=== PATIENT | female | born 1980 | race Two or more races ===

== ENCOUNTER 2023-03-05 17:48 | Outpatient (REF) | payer MEDICAID, SELFPAY ==
[2023-03-06 01:18] LABS: CT PCR NOT DETECTED (Not Detect.); NG PCR NOT DETECTED (Not Detect.)
[2023-03-06 14:54] LABS: BV Int Neg Control Negative (Negative); BV Int Pos Control Positive (Positive)
[2023-03-11 21:14] LABS: HPV mRNA E6/E7 rflx Not Detected (Not Detected)
== END 2023-03-05 17:49 | disposition home or self-care (01) ==
LOC: HO.HHCLNP 17:48
PROVIDERS: Visit Provider Family Medicine
DX: Z01.419 Encounter for gynecological examination (general) (routine) without abnormal findings (principal); N89.8 Other specified noninflammatory disorders of vagina
CPT/HCPCS: 0353U; 87480; 87510; 87624; 87660; 88142

== ENCOUNTER 2023-11-14 12:08 | Outpatient (REF) | payer MEDICAID, SELFPAY ==
[2023-11-14 17:16] LABS: Alanine Aminotransferase 13 U/L (0-31); Albumin Level 4.2 g/dL (3.5-5.0); Alkaline Phosphatase 108 U/L (39-117); Anion Gap 13 (12-20); Aspartate Amino Transferase 12 U/L (5-31); Bilirubin Total 0.2 mg/dL (0.0-1.0); Blood Urea Nitrogen 7 mg/dL (9-16); Calcium 9.4 mg/dL (8.4-10.2); Carbon Dioxide 25 mmol/L (22-29); Chloride 107 mmol/L (96-108); Estimated Glomerular Filt Rate > 60; Glucose Random 67 mg/dL (60-115); Lipase 40 U/L (8-78); Potassium 3.6 mmol/L (3.3-5.1); Sodium 141 mmol/L (135-145); Total Protein 8.2 g/dL (6.5-8.0)
== END 2023-11-14 12:09 | disposition home or self-care (01) ==
LOC: HO.HHCL 12:08
PROVIDERS: Visit Provider General Practice
DX: R10.13 Epigastric pain (principal)
CPT/HCPCS: 36415; 80053; 83690

== ENCOUNTER 2023-11-14 13:30 | Outpatient (REF) | payer MEDICAID, SELFPAY ==
--- NOTE | ~2023-11-14 | US_ITS ---
EXAMINATION: US RETROPERITONEAL LIMITED (RENAL ONLY) CLINICAL INFORMATION: Left kidney mass. COMPARISON: CT abdomen and pelvis 11/09/2023: There is a calculus in the upper left kidney measuring 5 mm. There is a subtle focal region of hypoattenuation in the left kidney such as seen on image 33/97, measuring up to approximately 2 cm in the craniocaudal dimension; this could be due to focal pyelonephritis versus a renal mass. TECHNIQUE: Real-time imaging of the kidneys. FINDINGS: RIGHT KIDNEY: 10.1 x 5.0 x 4.9 cm (SAG x AP x TRV). The kidney is normal in size, contour, and echogenicity. Renal cortical thickness is normal. No calculi or focal parenchymal lesions. No hydronephrosis. LEFT KIDNEY: 11.0 x 5.6 x 5.0 cm (SAG x AP x TRV). The kidney is normal in size, contour, and echogenicity. Renal cortical thickness is normal. No calculi or focal parenchymal lesions. The abnormal 2 cm hypoattenuating region in the left kidney seen at the time of the CT scan on 11/09/2023 is not seen on this study. The left-sided renal calculus seen on that exam is also not seen on this study. No hydronephrosis. US/US renal BI IMPRESSION: Normal-appearing kidneys. The abnormality seen on the CT scan is not seen on this study. The abnormality on the CT scan, however, was quite real and not questionable/equivocal. If the patient had symptoms of pyelonephritis and was treated with antibiotics and is now better, this possibly could have represented focal bacterial nephritis. However, MRI is recommended for further evaluation to exclude malignancy. This would be best in probably one month's time to assess for interval change.
== END 2023-11-14 13:31 | disposition home or self-care (01) ==
LOC: HO.US 13:30
PROVIDERS: PCP Family Medicine; Visit Provider General Practice
DX: N28.89 Other specified disorders of kidney and ureter (principal)
CPT/HCPCS: 36415; 76775; 80053; 83690

== ENCOUNTER 2023-11-17 16:40 | Emergency (ER) | payer MEDICAID, SELFPAY ==
--- NOTE | ~2023-11-17 | US_ITS ---
EXAMINATION: US ABDOMEN LIMITED CLINICAL INFORMATION: Right upper quadrant pain. Abnormal liver function tests.. COMPARISON: None available. TECHNIQUE: Real-time imaging of the right upper quadrant abdominal viscera. FINDINGS: PANCREAS: Normal. LIVER: Normal. The liver is normal in size. The liver contour is normal. Parenchymal echogenicity is normal. No focal hepatic lesion. There is no intrahepatic biliary duct dilatation seen. GALLBLADDER: The gallbladder appears to be partially contracted. A few shadowing gallbladder calculi are seen. The gallbladder wall measures up to 4.5 mm. There is no pericholecystic fluid. The patient did not report pain when scanning the right upper quadrant. COMMON BILE DUCT: Normal in caliber measuring 0.3 cm in diameter. RIGHT KIDNEY: Normal. No hydronephrosis. No renal calculi or focal parenchymal lesions. The kidney measures 10.2 cm in maximum dimension. FREE FLUID: None. US/US abdomen limited IMPRESSION: Cholelithiasis with mild nonspecific gallbladder wall thickening. No pericholecystic fluid or sonographic Saenz's sign to suggest acute cholecystitis.
--- NOTE | ~2023-11-17 | CT_ITS ---
EXAMINATION: CT ABDOMEN AND PELVIS WITH CONTRAST CLINICAL INFORMATION: Abdominal pain COMPARISON: CT abdomen from 11/09/2023 TECHNIQUE: Multidetector volumetric images were obtained from the superior aspect of the liver through the pubic symphysis following administration 85 mL of Omnipaque 350 intravenous contrast. Sagittal and coronal reformatted images were obtained on the technologist's workstation. Oral contrast: No This CT examination was performed using dose optimization techniques as appropriate, variously including the following: *Automated exposure control *Adjustment of mA and/or kV according to patient size (this includes techniques or standardized protocols for targeted exams where dose is matched to indication/reason for exam; i.e. extremities or head) *Use of iterative reconstruction technique DLP: 718 mGy-cm FINDINGS: LUNG BASES: Bibasilar atelectasis. No pneumothorax. No large pleural effusion. LIVER, GALLBLADDER, AND BILIARY TREE: The liver is normal in size, shape, and attenuation. No focal hepatic lesion or biliary ductal dilatation is present. The gallbladder is not fully distended though there is suggestion of mild wall thickening with trace pericholecystic fluid. Findings may reflect cholecystitis. Correlation with symptomatology. PANCREAS: Unremarkable. SPLEEN: Unremarkable. ADRENAL GLANDS: Unremarkable. KIDNEYS AND URETERS: Bilateral nephrolithiasis the largest in the left renal interpolar region measuring 5 mm without hydronephrosis. Hypodense focus in the left renal interpolar region better visualized on prior imaging nonspecific measuring up to 1.0 cm, incompletely evaluated. BLADDER: Urinary bladder is decompressed with wall thickening which is nonspecific in an underdistended state. GASTROINTESTINAL TRACT: The small and large bowel are unremarkable. The appendix is unremarkable. ABDOMINAL WALL: Small fat filled umbilical hernia. LYMPH NODES: No enlarged lymph nodes per size criteria. VASCULAR: Abdominal aorta is nonaneurysmal. PELVIC VISCERA: Anteverted uterus with fluid in the endometrium, correlation with phase of menstruation. Nabothian cysts are noted. Bilateral adnexal/ovarian hypodense foci measuring up to 2.3 cm. Findings are overwhelmingly likely to represent a normal ovarian follicle. No follow-up imaging recommended. Potential right ovarian hemorrhagic cyst versus follicle. OSSEOUS STRUCTURES: Sclerotic focus posterior wall of the left acetabular roof nonspecific though potentially representing a bone island. Additional bone islands noted in the right iliac bone. CT/CT abdomen pelvis w IV con IMPRESSION: 1. Gallbladder is not fully distended though there is suggestion of mild wall thickening with trace pericholecystic fluid. Findings may reflect cholecystitis. Correlation with symptomatology. 2. Bilateral nephrolithiasis the largest in the left renal interpolar region measuring 5 mm without hydronephrosis. 3. Hypodense focus in the left renal interpolar region better visualized on prior imaging nonspecific measuring up to 1.0 cm, incompletely evaluated. 4. Anteverted uterus with fluid in the endometrium, correlation with phase of menstruation. Nabothian cysts are noted. Bilateral adnexal/ovarian hypodense foci measuring up to 2.3 cm. Findings are overwhelmingly likely to represent a normal ovarian follicle. No follow-up imaging recommended. Potential right ovarian hemorrhagic cyst versus follicle.
[2023-11-17 17:03] VITALS: BP 171/103; PULSE 79; RESP 20; TEMP 36.8; O2SAT 100; BMI 36.5
--- NOTE | 2023-11-17 17:12 | ECG_ITS ---
Test Reason : abdominal pain Blood Pressure : / mmHG Vent. Rate : 077 BPM Atrial Rate : 077 BPM P-R Int : 144 ms QRS Dur : 072 ms QT Int : 370 ms P-R-T Axes : 017 -01 004 degrees QTc Int : 418 ms Normal sinus rhythm Normal ECG No previous ECGs available Referred By: Brandon Monte Electronically Signed By:Pankaj Summers
--- NOTE | 2023-11-17 17:13 | ED.GENADULT ---
HPI - General Adult General Chief complaint: Abdominal Pain Stated complaint: abd pain Time Seen by Provider: 11/17/23 20:12 History of Present Illness HPI narrative: The patient is a 43 old woman who says that 9 days ago she was in [place] at a restaurant when she developed severe upper abdominal pain radiating to her back. She went to an emergency room in [place] at the time and was seen at [facility] in [facility]. She says that she had a CT scan of her abdomen but did not really get any definite diagnosis. She was prescribed Percocet, famotidine, and ondansetron and was advised to follow up with her regular doctor. She followed up with the regular doctor 3 days ago on Friday. This morning she ate an egg sandwich at [employer] with cheese. Not long after eating breakfast she developed the same upper abdominal pain and nausea that she had on the 1st occasion. She came to the emergency room because she was quite uncomfortable. Before coming to the emergency room she took a dose of Percocet and is feeling considerably better. No fevers. Related Data Allergies Allergy/AdvReac Type Severity Reaction Status Date / Time aspirin Allergy Anaphylaxis Verified 11/17/23 17:10 Penicillins Allergy Anaphylaxis Verified 11/17/23 17:10 Review of Systems Review of Systems: Yes all other systems are reviewed and are negative [facility] Social History Social History Advance Directives: No Advance Directives Information Provided: No Physical Exam ED Vital Signs: Vital Signs - 24 hr 11/18/23 00:04 Temperature 98.7 F Pulse Rate 72 Respiratory Rate 18 Blood Pressure 140/76 H Oxygen Delivery Method Room Air BMI result Body Mass Index 36.5 Const Other: The patient is awake and alert, pleasant cooperative. She does not appear acutely toxic or in distress. HENMT Other: The face is symmetrical. ?Mucous membranes moist. Eyes Other: Pupils are round equal, conjunctivae are clear, extraocular movements intact Neck Other: No JVD Resp Effort & Inspection: normal respiratory effort Auscultation: clear to auscultation bilaterally Cardio Rate: regular rate Rhythm: regular rhythm Heart sounds: S1 normal heart sound present and S2 normal heart sound present GI Other: The abdomen is soft and not remarkably tender at the moment Skin Other: Skin is dry and unremarkable Neuro Other: Awake, alert, appropriate, normal mental status, grossly neurologically intact Extrem Other: No peripheral edema Course Course Course Narrative: RME: 43-year-old female presents to ED for abdominal pain with bloating for 1 week not improving. Patient was seen at [facility] and did a CT scan that told her possible tumor possible cancer but did not give her copy of the results patient not sure. Patient denies any weight loss. Labs repeat CT scan ordered. Medications Administered Discontinued Medications Generic Name Dose Route Start Last Admin Trade Name Branden PRN Reason Stop Dose Admin Iohexol 100 ml 11/17/23 19:38 11/17/23 19:38 Iohexol 350 Mg/Ml 100 Ml Infus..Btl IV 11/17/23 19:39 85 ml ONCE ONE Administration Medical Decision Making Medical Decision Making MDM Narrative: The patient is 43-year-old who presents for evaluation of upper abdominal pain. She describes having a similar episode a week ago. Both of these episodes have been related to eating food. The patient's labs today show mildly abnormal LFTs and a mildly abnormal lipase. A CT scan of the abdomen and pelvis was done that suggested the possibility of cholecystitis. An ultrasound of the gallbladder was also done. This shows gallstones but no definite findings of acute cholecystitis. The patient has LFTs and lipase were repeated. The patient's lipase normalized and the transaminases improved mildly. This seems to raise the possibility that there could have been a choledocholithiasis that has passed. In any event the patient was symptom free without intervention in the emergency department and she was symptom free for many hours during her workup. Considering that she has had no recurrence of pain and considering that her LFTs and lipase improved and that her white count and CRP are unremarkable I think she may be discharged with a diagnosis of biliary colic and should follow up with General surgery for consideration of a cholecystectomy. She was advised to follow a low-fat diet until she follows up with surgery. She should return if worse. Lab Data 11/17/23 17:32 11/17/23 17:32 Labs: Lab Results 11/17/23 11/17/23 11/17/23 Range/Units 17:32 21:51 22:22 WBC 9.9 (4.8-10.8) X10*3/uL RBC 4.39 (4.20-5.50) X10*6/uL Hgb 12.7 (12.0-16.0) g/dl Hct 38.0 (37.0-47.0) % MCV 86.6 (80.0-98.0) fL MCH 28.9 (27.0-33.0) pg MCHC 33.4 (31.0-35.0) g/dl RDW 13.5 (11.0-16.0) % Plt Count 302 (160-400) X10*3/uL MPV 9.4 (9.4-12.3) fL Immature Gran % (Auto) 0.3 (0.0-0.4) % Neut % (Auto) 64.6 (45-73) % Lymph % (Auto) 27.4 (20-40) % [place] % (Auto) 7.0 (2-11) % Eos % (Auto) 0.5 (0-4) % Baso % (Auto) 0.2 (0-2) % Lymph # (Auto) 2.7 (1.2-4.9) X10*3/uL [place] # (Auto) 0.7 (0.1-1.2) X10*3/uL Eos # (Auto) 0.1 (0.0-0.4) X10*3/uL Baso # (Auto) 0.0 (0.0-0.2) X10*3/uL Abs Immat Gran (auto) 0.03 (0.00-0.03) X10*3/uL Absolute Neuts (auto) 6.4 (2.0-8.3) x10*3/uL Absolute Nucleated RBC 0.000 (0.0-0.012) X10*3/uL Nucleated RBC % (auto) 0.0 (0.0-0.2) /100WBC Sodium 138 (135-145) mmol/L Potassium 3.8 (3.3-5.1) mmol/L Chloride 108 (96-108) mmol/L Carbon Dioxide 26 (22-29) mmol/L Anion Gap 8 L (12-20) BUN 6 L (9-16) mg/dL Creatinine 0.69 (0.5-1.4) mg/dL Estim Creat Clear Calc 104.6 Estimated GFR > 60 Random Glucose 96 (60-115) mg/dL Calcium 9.1 (8.4-10.2) mg/dL Total Bilirubin 0.3 0.3 (0.0-1.0) mg/dL Direct Bilirubin 0.1 (0.0-0.5) mg/dL AST 145 H 85 H (5-31) U/L ALT 89 H 85 H (0-31) U/L Alkaline Phosphatase 119 H 121 H (39-117) U/L Troponin I High Sens < 2.7 (<3.5-17.0) ng/L C-Reactive Protein 0.34 (< or = 0.50) mg/dL Total Protein 7.7 7.7 (6.5-8.0) g/dL Albumin 4.0 4.1 (3.5-5.0) g/dL Lipase 102 H 71 (8-78) U/L Beta HCG, Quant < 2 mIU/mL Urine Color Yellow Urine Appearance Clear Urine pH 6.0 (5.0-9.0) Ur Specific [place] >= 1.030 H (1.005-1.025) Urine Protein Negative (Neg-Trace) mg/dL Urine Glucose (UA) Negative (Negative) mg/dL Urine Ketones Negative (Negative) mg/dL Urine Blood Trace H (Negative) Urine Nitrite Negative (Negative) Ur Leukocyte Esterase Negative (Negative) Urine RBC 0-2 (0-2) /HPF Urine WBC 0-5 (0-5) /HPF Ur Squamous Epith Cells 0-2 (0-2) /HPF Urine Bacteria None Seen (None Seen) Hyaline Casts 0-2 (0-2) /LPF Discharge Plan Discharge Clinical Impression: Biliary colic Patient Disposition: Home, Self-Care Instructions: Biliary Colic (ED), Gallstones (ED) Additional Instructions: I believe that you have now had 2 episodes of what is called biliary colic. Biliary colic is a term that we used to describe episodes of pain that people have when they have a problem with her gallbladder and with gallstones. Your testing today shows that you have gallstones. In order to prevent another attack like this order to prevent any complication of an attack like the 1 you had today you will need to have your gallbladder removed fairly soon. You have been given the name and number for Dr. Parra, the on-call general surgeon. Please call the office in the morning and explain that you have had 2 severe attacks of gallbladder pain. Until you get into see a general surgeon and have your gallbladder removed you should plan on eating a very bland diet. Avoid fatty, greasy, or spicy foods. Return to the emergency room if significantly worse. Referrals: Elliot Parra MD [Physician] - (2 episodes of biliary colic) Interventions: ED Discharge Assessment Last Done: 11/18/23 00:04 Discharge Date/Time: 11/18/23 00:08 Print Language: Occitan
[2023-11-17 17:38] LABS: MANUAL DIFF FLAG NO
[2023-11-17 17:39] LABS: Basophils Percent Auto 0.2 % (0-2); Eosinophils Absolute Auto 0.1 X10*3/uL (0.0-0.4); Eosinophils Percent Auto 0.5 % (0-4); Hemoglobin 12.7 g/dl (12.0-16.0); Imm Gran Abs Auto 0.03 X10*3/uL (0.00-0.03); Imm Gran Pct Auto 0.3 % (0.0-0.4); Lymphocytes Absolute Auto 2.7 X10*3/uL (1.2-4.9); Lymphocytes Percent Auto 27.4 % (20-40); Mean Corpuscular HGB Conc 33.4 g/dl (31.0-35.0); Mean Corpuscular Hemoglobin 28.9 pg (27.0-33.0); Mean Corpuscular Volume 86.6 fL (80.0-98.0); Mean Platelet Volume 9.4 fL (9.4-12.3); Monocytes Absolute Auto 0.7 X10*3/uL (0.1-1.2); Neutrophils Absolute Auto 6.4 x10*3/uL (2.0-8.3); Neutrophils Percent Auto 64.6 % (45-73); Platelet Count 302 X10*3/uL (160-400); Red Blood Count 4.39 X10*6/uL (4.20-5.50); Red Cell Distribution Width 13.5 % (11.0-16.0); White Blood Count 9.9 X10*3/uL (4.8-10.8)
[2023-11-17 18:01] LABS: Alanine Aminotransferase 89 U/L (0-31); Alkaline Phosphatase 119 U/L (39-117); Anion Gap 8 (12-20); Aspartate Amino Transferase 145 U/L (5-31); Bilirubin Total 0.3 mg/dL (0.0-1.0); Blood Urea Nitrogen 6 mg/dL (9-16); Calcium 9.1 mg/dL (8.4-10.2); Carbon Dioxide 26 mmol/L (22-29); Chloride 108 mmol/L (96-108); Creatinine Clr Calc Pharmacy 104.6; Estimated Glomerular Filt Rate > 60; Glucose Random 96 mg/dL (60-115); Lipase 102 U/L (8-78); Potassium 3.8 mmol/L (3.3-5.1); Sodium 138 mmol/L (135-145); Total Protein 7.7 g/dL (6.5-8.0)
[2023-11-17 18:05] LABS: HCG Quantitative < 2 mIU/mL; Troponin-I High Sensitivity < 2.7 ng/L (<3.5-17.0)
[2023-11-17] MEDS: iohexoL 350 MG/ML 100 ML INFUS..BTL IV (19:38)
[2023-11-17 19:54] VITALS: BP 142/88; PULSE 74; RESP 18; TEMP 36.7; O2SAT 100
[2023-11-17 21:58] LABS: Appearance Urine Clear; Color Urine Yellow; Glucose Urine UA Negative (Negative); Leukocyte Esterase Urine Negative (Negative); Nitrite Urine Negative (Negative); Specific Gravity - Urine >= 1.030 (1.005-1.025); UMIC TRIGGER UACC YES; Urine Blood Trace (Negative); Urine Ketones Negative (Negative); Urine Protein Negative (Neg-Trace)
[2023-11-17 22:01] LABS: Bacteria Urine None Seen (None Seen); Hyaline Casts Urine 0-2 /LPF (0-2); RBC Urine 0-2 /HPF (0-2); Squamous Epithelial Cell Urine 0-2 /HPF (0-2); WBC Urine 0-5 /HPF (0-5)
[2023-11-17 22:13] VITALS: BP 141/87; PULSE 67; RESP 20; TEMP 36.6; O2SAT 100
[2023-11-17 22:40] LABS: Alanine Aminotransferase 85 U/L (0-31); Albumin Level 4.1 g/dL (3.5-5.0); Alkaline Phosphatase 121 U/L (39-117); Aspartate Amino Transferase 85 U/L (5-31); Bilirubin Direct 0.1 mg/dL (0.0-0.5); Bilirubin Total 0.3 mg/dL (0.0-1.0); C Reactive Protein 0.34 mg/dL (< or = 0.50); Lipase 71 U/L (8-78); Total Protein 7.7 g/dL (6.5-8.0)
[2023-11-18 00:04] VITALS: BP 140/76; PULSE 72; RESP 18; TEMP 37.1
== END 2023-11-18 00:08 | disposition home or self-care (01) ==
PROVIDERS: Physician Assistant; Emergency Provider Emergency Medicine
DX: K80.50 Calculus of bile duct without cholangitis or cholecystitis without obstruction (principal); Z88.0 Allergy status to penicillin; Z88.6 Allergy status to analgesic agent
CPT/HCPCS: 36415; 74177; 76705; 80053; 80076; 81001; 83690; 84484; 84702; 85025; 86140; 93005; 99284; Q9967

== ENCOUNTER → 2023-11-17 17:12 | Outpatient (BNV) | payer MEDICAID, SELFPAY | PROVIDERS: Emergency Provider Emergency Medicine; Visit Provider Internal Medicine Cardiovascular Disease | DX: R10.9 Unspecified abdominal pain (principal) | CPT/HCPCS: 93010 ==

== ENCOUNTER 2023-11-19 13:29 | Outpatient (AMB) | payer MEDICAID, SELFPAY ==
--- NOTE | 2023-11-19 13:36 | MHC.OFFVIS ---
Intake Vital Signs 11/19/23 13:46 Height 5 ft 1 in Weight 192 lb BMI 36.3 BP 150/74 H Blood Pressure Location Rt brachial Position Sitting Pulse 79 Intake Visit Reasons: Cholelithiasis Intake Note: Patient referred after ER visit on 11-17-23. Patient c/o: RUQ pain that spreads to back, nausea, vomiting Abd US: 11-17-23. Insurance Claims Examiner Required: No Accompanied by: Self / Same As Patient Allergies aspirin Allergy (Verified 11/19/23 13:42) Anaphylaxis Penicillins Allergy (Verified 11/19/23 13:42) Anaphylaxis HPI HPI Comments History of Present Illness Details Patient presents with a longstanding history of right upper quadrant pain radiating around to her back. She has had 2 ER visits. Workup has included sonogram demonstrated cholelithiasis. Patient otherwise is able to tolerate a diet, has regular bowel habits. She has never been jaundiced before. Chart was reviewed patient evaluated [facility] Medical History (Updated 11/19/23 @ 13:44 by STAN Harman) Anxiety Depression Asthma Surgical History (Updated 11/19/23 @ 14:31 by Elliot Parra MD) H/O hysterectomy for benign disease Social History (Updated 11/19/23 @ 13:45 by STAN Harman) Alcohol intake: never Patient Tobacco Use Status: Never used Tobacco Physical Exam Vital Signs: Last Vital Signs Pulse 79 11/19/23 13:46 BP 150/74 H 11/19/23 13:46 BMI result Body Mass Index 36.3 Eyes Other: Anicteric Chest Other: Chest breath sounds bilaterally, HS 1 in 2 GI Other: Abdomen is soft, corpulent, benign Assessment & Plan Assessment & Plan (1) Recurrent biliary colic: Code(s): K80.50 - Calculus of bile duct without cholangitis or cholecystitis without obstruction Plan Risks, benefits, alternatives laparoscopic possible open cholecystectomy were reviewed with the patient and included but not limited to bleeding, infection, recurrence of symptoms, numbness, pain, scarring, bowel or bile duct injury or leak and the patient wishes to proceed. All questions answered. Arrangements were made for this. Coding Level of Care Code New Pt Level 5 (99537) Diagnoses Recurrent biliary colic K80.50
[2023-11-19 13:46] VITALS: BP 150/74; PULSE 79; BMI 36.3
== END 2023-11-19 14:12 | disposition home or self-care (01) ==
PROVIDERS: PCP Family Medicine; Referring Provider Family Medicine; Visit Provider Surgery
DX: K80.50 Calculus of bile duct without cholangitis or cholecystitis without obstruction (principal)
CPT/HCPCS: 99204

== ENCOUNTER → 2023-11-19 13:29 | Outpatient (BNVA) | payer MEDICAID, SELFPAY | PROVIDERS: PCP Family Medicine; Visit Provider Surgery | DX: K80.50 Calculus of bile duct without cholangitis or cholecystitis without obstruction (principal) | CPT/HCPCS: 99202 ==

== ENCOUNTER 2023-12-19 07:31 | Day surgery (SDC) | payer MEDICAID, SELFPAY ==
--- NOTE | 2023-12-17 14:49 | HO.ANESPROP2 ---
Documented by User: Asia George NP 12/17/23 14:50 HPI - Anesthesia Eval Consult details Narrative: 43yo F for Cholecystectomy Laparoscopic PMFSH Active Problems Active Problems: All Active Problems Recurrent biliary colic (Acute) Past Medical History Medical History Anxiety Depression Asthma Surgical History Surgical History H/O hysterectomy for benign disease Social History Social History (Updated 11/19/23 @ 13:45 by STAN Harman) Alcohol intake: never Patient Tobacco Use Status: Never used Tobacco Use of substances other than those prescribed or required for medical reasons: No Are you DNR?: No Advance Directives: No Advance Directives Information Provided: Yes Meds Allergies Allergy/AdvReac Type Severity Reaction Status Date / Time aspirin Allergy Anaphylaxis Verified 12/19/23 08:37 Penicillins Allergy Anaphylaxis Verified 12/19/23 08:37 Home Medications ?Medication ?Instructions ?Recorded ?Confirmed ?Last Taken ?Type albuterol sulfate 90 mcg/actuation 2 puff inhalation Q4H PRN wheezing 11/19/23 Unknown History aerosol inhaler (Ventolin HFA) calcium polycarbophil 625 mg 625 mg PO Q12H 11/19/23 12/19/23 12/18/23 History tablet (Fiber-Lax) omeprazole 20 mg capsule,delayed 20 mg PO QAM 11/19/23 12/19/23 12/12/23 History release polyethylene glycol 3350 17 g PO DAILY constipation 11/19/23 Unknown History gram/dose oral powder trazodone 50 mg tablet 50 mg PO BEDTIME PRN insomnia 11/19/23 12/19/23 12/18/23 History Exam Pertinent Lab Results Pertinent Lab Results: Laboratory Tests 11/17/23 17:32 WBC 9.9 Hgb 12.7 Hct 38.0 Plt Count 302 Sodium 138 Potassium 3.8 Chloride 108 Carbon Dioxide 26 BUN 6 L Creatinine 0.69 Narrative Narrative: EKG 11/2023 Vent. Rate : 077 BPM Atrial Rate : 077 BPM P-R Int : 144 ms QRS Dur : 072 ms QT Int : 370 ms P-R-T Axes : 017 -01 004 degrees QTc Int : 418 ms Normal sinus rhythm Normal ECG No previous ECGs available Assessment and Plan Assessment Anesthesia Assessment: Chart Reviewed Documented by User: Remi Travis MD 12/19/23 09:01 PMF Past Medical History Medical History Anxiety Depression Asthma Family History Family history of problems with anesthesia: No Surgical History Surgical History H/O hysterectomy for benign disease History of Problems with Anesthesia: No Social History Social History (Updated 11/19/23 @ 13:45 by STAN Harman) Alcohol intake: never Patient Tobacco Use Status: Never used Tobacco Use of substances other than those prescribed or required for medical reasons: No Are you DNR?: No Advance Directives: No Advance Directives Information Provided: Yes Meds Allergies Allergy/AdvReac Type Severity Reaction Status Date / Time aspirin Allergy Anaphylaxis Verified 12/19/23 08:37 Penicillins Allergy Anaphylaxis Verified 12/19/23 08:37 Home Medications ?Medication ?Instructions ?Recorded ?Confirmed ?Last Taken ?Type albuterol sulfate 90 mcg/actuation 2 puff inhalation Q4H PRN wheezing 11/19/23 Unknown History aerosol inhaler (Ventolin HFA) calcium polycarbophil 625 mg 625 mg PO Q12H 11/19/23 12/19/23 12/18/23 History tablet (Fiber-Lax) omeprazole 20 mg capsule,delayed 20 mg PO QAM 11/19/23 12/19/23 12/12/23 History release polyethylene glycol 3350 17 g PO DAILY constipation 11/19/23 Unknown History gram/dose oral powder trazodone 50 mg tablet 50 mg PO BEDTIME PRN insomnia 11/19/23 12/19/23 12/18/23 History Exam Airway Mallampati Class: II TM Dist: >3cm Neck ROM: Full Loose/Missing/Broken Teeth: Yes Heart: rrr Lungs: cta Assessment and Plan Final Anesthetic Review Family History of Problems with Anesthesia: No History of Problems with Anesthesia: No NPO: Yes ASA Class: II Final Preanesthetic Review: No Changes in Pt Med Stat, Meds/Allgs Chart Reviewed, Consent Obtained/Reviewed and Anes Risks/Benef Reviewed Patient Risk: Intermediate Procedure Risk: Intermediate Anesthetic Plan Anesthetic Plan: GA Disposition: Standard PACU
--- NOTE | 2023-12-17 15:38 | MHC.SHP ---
Pre-Procedural Eval Section A - 24 Hr Update-Section A only Date of Service: 12/17/23 The patient is an INPATIENT: No Changes since office visit: No Cold of Flu in the past 2 weeks, No New Medical Problems, No Changes in Medication and No Patient answered all questions Section B - Complete if H&P > 30 days Chief Complaint: Calculus of bile duct without cholangitis Allergies: Allergies Allergy/AdvReac Type Severity Reaction Status Date / Time aspirin Allergy Anaphylaxis Verified 11/19/23 13:42 Penicillins Allergy Anaphylaxis Verified 11/19/23 13:42 Plan I have reviewed the history and physical and performed a pertinent physical examination on my patient. No changes have occurred unless specified. Time Spent With Patient Time: Total time managing care of this patient today ____ minutes.
[2023-12-19] VITALS (15 sets, daily range): BP systolic 116–164; BP diastolic 82–99; PULSE 64–79; RESP 12–21; TEMP 36.2–36.3; O2SAT 94–98; BMI 35.9
[2023-12-19] MEDS: Lactated Ringers 1,000 ML 100 ML IVCONT (08:36)
--- NOTE | 2023-12-19 11:54 | W.PM.OPN ---
Operative Note Operative Note Date of Service: 12/19/23 Narrative: Preoperative diagnosis: [] Symptomatic gallbladder Postop diagnosis: [] The same Procedure [] laparoscopic cholecystectomy Surgeon: [] Fidel Rehabilitation Coordinator: [] Catracho Type of Anesthesia: [] General Indication for surgery: [] Gallbladder with omental adhesions to it. Small gallstones in the gallbladder. Findings: [] Patient was brought to the operating room, placed on operative table in supine position, after an adequate level of general anesthesia was induced, the patient's abdomen was prepped and draped in usual sterile fashion. Using a supraumbilical curvilinear incision, Witt technique was used to insufflate abdominal cavity to 15 mm of CO2. Upper midline and right subcostal ports were placed under direct laparoscopic view, and the patient placed in reverse Trendelenburg position, and tilted to the left. Gallbladder was grasped using laparoscopic graspers, and retracted superiorly and laterally. Soft omental adhesions were swept off the gallbladder and its hilum approached. Common bile duct was identified and preserved throughout the procedure. Cystic artery and cystic duct were each identified, circumferentially skeletonized, traced directly into the gallbladder, and critical view obtained. Each was clipped proximally x2, distally x1, and transected gallbladder was then cauterized from the gallbladder fossa using Bovie. Specimen was placed in an Endo-Catch bag, a retrieved through the umbilical port. Abdominal cavity was copiously irrigated, and secured hemostasis. All ports were removed under direct laparoscopic view. Wounds were closed in the following manner; umbilical wound has fascia reapproximated using interrupted 0 Vicryl sutures. Skin wounds were closed using subcuticular 4-0 Vicryl sutures followed by Steri-Strips and sterile dressings. Wounds were infiltrated 0.5% Marcaine at completion. Sponge, needle, and instrument counts were reported to be correct. Patient tolerated the procedure well and emerged from anesthesia stable condition. EBL minimal
[2023-12-19] MEDS: HYDROmorphone HCl 0.5 MG/0.5 ML SYRINGE IVPUSH ×3 (12:04→12:40)
[2023-12-19] MEDS: fentaNYL citrate/PF 100 MCG/2 ML VIAL 25 MCG IVPUSH ×2 (13:18→13:24)
[2023-12-19] MEDS: Acetaminophen 325 MG TABLET 650 MG PO (13:29)
== END 2023-12-19 14:47 | disposition home or self-care (01) ==
PROVIDERS: Visit Provider Surgery
PROC: 0FT44ZZ Resection of Gallbladder, Percutaneous Endoscopic Approach (ICD-10-PCS; CPT 47562; principal; 2023-12-19 09:30)
DX: K80.10 Calculus of gallbladder with chronic cholecystitis without obstruction (principal); K82.8 Other specified diseases of gallbladder; Z88.0 Allergy status to penicillin; J45.909 Unspecified asthma, uncomplicated; F32.A Depression, unspecified; F41.9 Anxiety disorder, unspecified; Z88.8 Allergy status to other drugs, medicaments and biological substances
CPT/HCPCS: 47562; 88304; J0736; J1170; J2371; J2704; J2795; J3010

== ENCOUNTER → 2023-12-19 07:31 | Outpatient (BNV) | payer MEDICAID, SELFPAY | PROVIDERS: Visit Provider Surgery | DX: K80.50 Calculus of bile duct without cholangitis or cholecystitis without obstruction (principal) | CPT/HCPCS: 47562 ==

== ENCOUNTER 2023-12-29 11:03 | Outpatient (AMB) | payer MEDICAID, SELFPAY ==
--- NOTE | 2023-12-29 11:05 | A.OFFVIS_ITS ---
Intake Visit Reasons: p/o lap margy Intake Note: Patient here for s/p lap margy. Reports incision healing well. Patient c/o: feels large lump on lt abd. Tenderness along belly incision. Wearing shaping garmet. No longer taking rx pain meds. Turning Sander Operator Required: Yes Turning Sander Operator Name: Maryann PIERCE Accompanied by: Self / Same As Patient Allergies aspirin Allergy (Verified 12/29/23 11:10) Anaphylaxis Penicillins Allergy (Verified 12/29/23 11:10) Anaphylaxis Medication List - Last Reconciled 12/29/23 by Elliot Parra MD albuterol sulfate 90 mcg/actuation (Ventolin HFA) 2 puffs inhalation Q4H PRN calcium polycarbophil (Fiber-Lax) 625 mg PO Q12H omeprazole 20 mg PO QAM polyethylene glycol 3350 grams PO DAILY trazodone 50 mg PO BEDTIME PRN HPI Comments Details: Patient presents for follow-up. Aside from incisional discomfort which is improving she otherwise doing well. She has tolerating a diet. Having regular bowel habits. She is increasing her activity level. [facility] Medical History Anxiety Depression Asthma Surgical History History of laparoscopic cholecystectomy (12/19/23) H/O hysterectomy for benign disease Social History Alcohol intake: never Comment: pt was medicated Patient Tobacco Use Status: Never used Tobacco Physical Exam Eyes Other: Anicteric GI Other: Abdomen is soft. All wounds clean dry and intact healing well Assessment & Plan Assessment & Plan (1) Status post laparoscopic cholecystectomy: Code(s): Z90.49 - Acquired absence of other specified parts of digestive tract Category: Medical Plan Patient has been given local instructions, and will otherwise follow up p.r.n.. She would like a a renewal of her pain meds. She does not tolerate Motrin well. This will be undertaken. All questions answered. Medications: New hydrocodone-acetaminophen 5-325 mg Partial Fill upon patient request. 1 tab PO Q4-6H PRN 30 tabs 0RF pain Coding Level of Care Code Global (42344) Diagnoses Status post laparoscopic cholecystectomy Z90.49
== END 2023-12-29 11:50 | disposition home or self-care (01) ==
PROVIDERS: Visit Provider Surgery
DX: Z90.49 Acquired absence of other specified parts of digestive tract (principal)
CPT/HCPCS: 99024

== ENCOUNTER → 2023-12-29 11:03 | Outpatient (BNVA) | payer MEDICAID, SELFPAY | PROVIDERS: Visit Provider Surgery | DX: Z90.49 Acquired absence of other specified parts of digestive tract (principal) | CPT/HCPCS: 99212 ==

== ENCOUNTER 2024-01-20 09:04 | Outpatient (REF) | payer MEDICAID, SELFPAY ==
--- NOTE | ~2024-01-20 | MR_ITS ---
EXAMINATION: MRI ABDOMEN WITH AND WITHOUT CONTRAST CLINICAL INFORMATION: Evaluation of left renal lesion. COMPARISON: CT abdomen/pelvis 11/17/2023. TECHNIQUE: Multiple routine MRI sequences through the abdomen were obtained before and after the uneventful administration of 10 mL Gadavist gadolinium-based IV contrast. FINDINGS: LUNG BASES: Lung bases are clear. LIVER: Liver is normal in size, signal and morphology. There is a 0.5 and 0.7 cm foci of arterial phase hyperenhancement in the right hepatic lobe (images 42 and 37 of series 100) with no corresponding signal abnormality in any of the other sequences suggestive of transient perfusional observations. GALLBLADDER AND BILIARY TREE: The gallbladder is not visualized, possibly surgically removed versus decompressed. No inflammatory changes in the gallbladder bed to suspect acute cholecystitis. No biliary ductal dilatation. SPLEEN: Normal. PANCREAS: Normal. ADRENAL GLANDS: Normal. KIDNEYS AND URETERS: Symmetric nephrograms. No hydronephrosis. No perinephric stranding. Corresponding to the abnormality in question, there is a 1.4 cm endophytic observation in the posterior aspect of the interpolar left kidney that is best visualized on the delayed postcontrast phase (image 77 series 102) as a region of hypoenhancement compared to the adjacent renal cortex. On an earlier postcontrast arterial phase, it demonstrates similar enhancement compared to the cortex (image 75 series 100). On T2 images, it demonstrates faint internal hyperintensity and a very subtle hypointense rim (image 25 series 4). On precontrast T1 images, the observation is not well seen. In the in-and-out of phase images, there is no discrete associated signal abnormality. GASTROINTESTINAL: Trace hiatal hernia. No evidence of bowel obstruction or ascites. LYMPHOVASCULAR STRUCTURES: Normal caliber aorta. No pathologically enlarged abdominal or retroperitoneal lymphadenopathy by short axis size criteria. OSSEOUS STRUCTURES: No acute or suspicious osseous abnormalities. MR/MR kidney wo/w con IMPRESSION: Stable 1.4 cm lesion in the posterior aspect of the interpolar left kidney with enhancement and no evidence of fat, suspicious for a solid neoplasm such as renal cell carcinoma. Arterial hyperenhancing foci in the liver without corresponding signal abnormalities in other sequences, most suggestive of perfusional changes. Out of precaution, a follow-up MRI in 3-6 months is recommended.
[2024-01-20] MEDS: gadobutroL 10 ML VIAL IVPUSH (10:41)
== END 2024-01-20 09:05 | disposition home or self-care (01) ==
LOC: HO.MRI 09:04
PROVIDERS: PCP Family Medicine; Visit Provider General Practice
DX: N28.89 Other specified disorders of kidney and ureter (principal)
CPT/HCPCS: 74183; A9585

== ENCOUNTER 2024-02-11 10:23 | Outpatient (REF) | payer MEDICAID, SELFPAY ==
[2024-02-11 13:29] LABS: Hematocrit 37.7 % (37.0-47.0); Mean Corpuscular HGB Conc 31.8 g/dl (31.0-35.0); Mean Corpuscular Hemoglobin 28.1 pg (27.0-33.0); Mean Corpuscular Volume 88.3 fL (80.0-98.0); Platelet Count 296 X10*3/uL (160-400); Red Blood Count 4.27 X10*6/uL (4.20-5.50); Red Cell Distribution Width 13.5 % (11.0-16.0); White Blood Count 6.8 X10*3/uL (4.8-10.8)
[2024-02-11 13:48] LABS: Calcium 9.4 mg/dL (8.4-10.2); Chloride 107 mmol/L (96-108); Potassium 3.5 mmol/L (3.3-5.1); Sodium 140 mmol/L (135-145)
[2024-02-11 13:52] LABS: Estimated Average Glucose 117 mg/dL; Hemoglobin A1c % 5.7 % (<6.0)
[2024-02-11 13:57] LABS: Hepatitis A Antibody IgG Nonreactive (Nonreactive); ~Hepatitis A Antibody IgG 0.62 S/CO (0.00-0.99)
[2024-02-11 14:00] LABS: HBS Num1 3.57 mIU/mL (0-7.99); HBc Num1 5.01 S/CO (0.00-0.79); HBsAGNum1 0.26 S/CO (0.00-0.99); HIV AB/AG Nonreactive (Nonreactive); HIV Num 1 0.05 S/CO (0.00-0.99); Hepatitis B Surface Antigen Negative (Negative); ~HepC Num1 0.11 S/CO (0.00-0.79); ~Hepatitis B Surface Antibody NONREACTIVE (Nonreactive); ~Hepatitis C Antibody Nonreactive (Nonreactive)
[2024-02-11 14:02] LABS: Creatinine Urine 89.48 mg/dL; Microalbum/Creatinine Ratio Ur 11.1 ug/mg cr (<30)
[2024-02-11 14:04] LABS: Free T4 (Free Thyroxine) 0.92 ng/dL (0.71-1.85); Thyroid Stimulating Hormone 1.52 uIU/mL (0.32-4.0); Vitamin D 25-OH Total 22.6 ng/mL (>30)
[2024-02-11 14:13] LABS: Alanine Aminotransferase 12 U/L (0-31); Albumin Level 4.1 g/dL (3.5-5.0); Alkaline Phosphatase 114 U/L (39-117); Anion Gap 13 (12-20); Aspartate Amino Transferase 15 U/L (5-31); Bilirubin Direct < 0.2 mg/dL (0.0-0.5); Bilirubin Total 0.2 mg/dL (0.0-1.0); Blood Urea Nitrogen 7 mg/dL (9-16); Carbon Dioxide 23 mmol/L (22-29); Cholesterol 153 mg/dL (<200); Estimated Glomerular Filt Rate > 60; Glucose Random 77 mg/dL (60-115); HDL Cholesterol 48 mg/dL (>40); LDL Cholesterol Calculated 87 mg/dL (<100); Total Protein 7.9 g/dL (6.5-8.0); Triglycerides 93 mg/dL (<150)
[2024-02-11 14:46] LABS: HBc Num2 4.97 S/CO; Hepatitis B Core Antibody Reactive (Nonreactive)
[2024-02-11 15:52] LABS: CT PCR NOT DETECTED (Not Detect.); NG PCR NOT DETECTED (Not Detect.)
[2024-02-12 09:04] LABS: Hepatitis B Core Antibody IgM NON-REACTIVE (NON-REACTIVE)
[2024-02-13 10:44] LABS: RPR Rapid Plasma Reagin NON-REACTIVE (NON-REACTIVE)
== END 2024-02-11 10:24 | disposition home or self-care (01) ==
LOC: HO.HHCL 10:23
PROVIDERS: Visit Provider Family Medicine
DX: Z00.00 Encounter for general adult medical examination without abnormal findings (principal); Z11.4 Encounter for screening for human immunodeficiency virus [HIV]; Z11.3 Encounter for screening for infections with a predominantly sexual mode of transmission
CPT/HCPCS: 36415; 80048; 80061; 80076; 82043; 82306; 82570; 83036; 84439; 84443; 85027; 86592; 86704; 86705; 86706; 86708; 86803; 87340; 87389; 87491; 87591

== ENCOUNTER 2024-04-08 11:43 | Outpatient (REF) | payer MEDICAID, SELFPAY ==
--- NOTE | ~2024-04-08 | XR_ITS ---
EXAMINATION: XR LUMBAR SPINE CLINICAL INFORMATION: Chronic bilateral low back pain. Right-sided sciatica. COMPARISON: CT dated 11/17/2023 TECHNIQUE: Five views of the lumbosacral spine. FINDINGS: Vertebral body heights are normal. No fracture or spondylolisthesis. Moderate degenerative disc disease at L5-S1 with loss of the scaphoid, and periarticular osteophytes, and endplate sclerosis. Mild facet arthropathy. Bone mineralization is normal. Soft tissues are unremarkable. Imaged portions of the sacroiliac joints are normal. Cholecystectomy clips are present in the right upper quadrant. XR/XR lumbar spine 4V min IMPRESSION: Moderate degenerative disc disease at L5-S1. Electronically signed by: Gage Zhao MD 04/27/2024 10:49 PM EDT
== END 2024-04-08 11:44 | disposition home or self-care (01) ==
LOC: HO.HHCX 11:43
PROVIDERS: Visit Provider Family Medicine
DX: M54.41 Lumbago with sciatica, right side (principal); G89.29 Other chronic pain
CPT/HCPCS: 72110

== ENCOUNTER 2024-11-07 13:29 | Outpatient (REF) | payer MEDICAID, SELFPAY ==
--- NOTE | ~2024-11-07 | MR_ITS ---
CLINICAL HISTORY: FOCI IN LIVER MR abdomen with and without gadolinium Comparison: MR/WI/SR - MR KIDNEY WO/W CON - 01/20/24 10:18 EDT Findings: Lung bases are clear. Heart size is normal. Liver, biliary tree, and pancreas are within normal limits. Gallbladder is not seen. Spleen and adrenals are within normal limits. 13 mm hypoenhancing focus within the left interpolar kidney posteriorly is unchanged. Kidneys are otherwise within normal limits. Visualized bowel loops and vasculature are within normal limits. No adenopathy. Small hiatal hernia. Visualized osseous structures are within normal limits. IMPRESSION: 1. No significant change in left interpolar renal focus. Continued follow up MRI with and without intravenous contrast in 1 year recommended. 2. Resolution of previously seen hepatic foci of enhancement. 3. Small hiatal hernia. This document has been electronically signed by: Karsten Pritchett MD on 11/08/2024 20:33:34
--- NOTE | ~2024-11-07 | MR_ITS ---
EXAMINATION: MR LUMBAR SPINE WITHOUT CONTRAST CLINICAL INFORMATION: Worsening low back pain radiating to the right lower extremity. COMPARISON: None available. TECHNIQUE: MRI of the lumbar spine was obtained using routine sequences without contrast. FINDINGS: Last rib-bearing vertebra labeled T12. There is an intrinsic hyperintense T1 bone lesion at T12 likely intraosseous hemangioma. There is Modic type II endplate changes at L5-S1 with decreased intervertebral disc height subchondral cyst formation and endplate irregularity and punctate STIR signal. The alignment is normal. The conus medullaris ends at pedicle of L1 with normal signal. T12-L1: No disc herniation. No neuroforamina stenosis. L1-2: Broad-based disc bulging. No disc herniation. No neuroforamina stenosis. L2-3: Broad-based disc bulging. Facet joint hypertrophy. No compression upon neural elements. L3-4: Broad-based disc bulging. Facet joint and ligamentum flavum hypertrophy. No compression upon neural elements. L4-5: Broad-based disc bulging. Facet joint and ligamentum flavum hypertrophy. No compression upon neural elements. L5-S1: Central disc herniation at L5-S1 abutting the S1 nerve roots on the lateral recesses. Facet joint hypertrophy. Bilateral neuroforamina narrowing likely encroaching the L5 exiting nerve roots. No prevertebral compartment hematoma, mass or fluid collection. MR/MR lumbar spine wo con IMPRESSION: Central disc herniation at L5-S1 abutting the S1 nerve roots. Multilevel cervical spondylosis more conspicuous at L5-S1 and to a lesser extent L4-5 likely encroaching the L5 exiting nerve roots. Electronically signed by: Juan Antonio Riggins MD 11/08/2024 07:51 AM EDT
[2024-11-07] MEDS: gadobutroL 10 ML VIAL IVPUSH (15:02)
== END 2024-11-07 13:30 | disposition home or self-care (01) ==
LOC: HO.MRI 13:29
PROVIDERS: Visit Provider Family Medicine
DX: K21.9 Gastro-esophageal reflux disease without esophagitis (principal); N28.89 Other specified disorders of kidney and ureter; R93.2 Abnormal findings on diagnostic imaging of liver and biliary tract; M54.41 Lumbago with sciatica, right side; G89.29 Other chronic pain; Z00.00 Encounter for general adult medical examination without abnormal findings; Z68.36 Body mass index [BMI] 36.0-36.9, adult
CPT/HCPCS: 72148; 74183; A9585

== ENCOUNTER → 2024-11-07 13:44 | Outpatient (BNV) | payer MEDICAID, SELFPAY | PROVIDERS: Visit Provider Radiology Diagnostic Radiology | DX: K44.9 Diaphragmatic hernia without obstruction or gangrene (principal); M51.27 Other intervertebral disc displacement, lumbosacral region | CPT/HCPCS: 72148; 74183 ==

== ENCOUNTER 2024-11-15 08:14 | Outpatient (REF) | payer MEDICAID, SELFPAY ==
--- OUTSIDE RECORDS SUMMARY | 2024-11-15 08:35 | XMS_ITS | Encounter Summary ---
Author Organization [employer] Address [address] [facility] [address] [facility] [address] [place] [address] Care Team Providers Care Health Tech Name Role Phone Mallory Cierra Primary Care Provider [phone] Reason for Referral * Imaging (Routine) - Closed Specialty Diagnoses / Procedures Referred By Christal baekr Referred To Contact Radiology Diagnoses Left kidney mass Procedures MR KIDNEY WO/W CON Lizbeth Pearson MD [address] [place] [address] Phone: tel: fax: [address] Phone: tel: fax: Referral ID Status Reason Start Date Expiration Date Visits Re quested Visits Authorized [id number] Closed 11/24/2023 11/23/2024 1 1 Encounter Details Date Type Department Care Team (Late st Contact Info) Description 11/24/2023 Orders Only [facility] MEDICINE [address] [place], [place] [phone] Lizbeth Pearson MD [address] [place], [place] [phone] Left kidney mass (Primary Dx) Social History Tobacco Use Types Packs/Day Years Used Date Smoking Tobacco: Former Cigarettes Passive Smoke Exposure: Past Smokeless Tobacco: Never Alcohol Use Standard Drinks/Week Comments Never 0 (1 standard drink = 0.6 oz pur e alcohol) Housing Stability Answer Date Recorded What is your housing situation today? I have heriberto frey 06/05/[address] you li ve. Do you have problems with any of the following? None of the above 06/05/2023 Food Insecurity Answer Date Recorded Within the past 12 months, y ou worried that your food would run out before you got money to buy more: Never True 06/05/2023 Within the past 12 months,th e food you bought just didn't last and you didn't have enough money to get more: Never True Utilities Answer Date Recorded In the past 12 months, has t he [employer], gas, oil or water company threatened to shut off services in your home? No 06/05/2023 Depression Answer Date Recorded Patient Health Questionnaire-2 Score 0 01/17/2023 Comments Unknown Sex and Gender Information Value Date Recorded Sex Assigned at Female 06/10/2022 10:21 AM EDT Legal Sex Female 10:21 AM EDT Gender Identity Female 06/10/2022 10:21 AM EDT Sexual Orientation Straight 06/10/2022 10 :21 AM EDT documented as of this encounter Plan of Treatment Upcoming Encounters Date Type Department Care Team (Late st Contact Info) Description 11/15/2024 10:00 AM EDT Clinical Support [facility] MEDICINE [address] [place] [address] 12/20/2024 10:00 AM EDT Office Visit [facility] OPTOMETRY [address] [place] [address] Vinnie, Yanni, OD [address] [place] [address] documented as of this encounter Procedures Procedure Name Priority Date/Time Associated Diagnosis Comments MR KIDNEY WO/W CON Routine 01/20/2024 10 :30 AM EDT Left kidney mass documented in this encounter Results * MR KIDNEY WO/W CON (01/20/2024 10:30 AM EDT) Anatomical Region Laterality Modality Kidney Bilateral Magnetic Resonan ce 01/20/2024 10:3 0 AM EDT Narrative 02/06/2024 1:48 PM EDT ? [facility] ?[address] ?[place] [address] ? Magnetic Resonance Report ? Signed ? Patient: Colon Rcihard,Mabelis ?MR#: [id number] ?? [id number] ? : 1980 ?Acct:[id number] ? Age/Sex: 43 / F ?ADM Date: 01/20/24 ? Loc: HO.MRI ? Attending Dr: Lizbeth Pearson MD ? Ordering Physician: Lizbeth Pearson ?? Date of Service: 01/20/24 ?? Procedure(s): MR kidney wo/w con ?? Accession Number(s): [id number] ? cc: Lizbeth Pearson; Cierra Tejada DO ? EXAMINATION: ?? MRI ABDOMEN WITH AND WITHOUT CONTRAST ? CLINICAL INFORMATION: ?? Evaluation of left renal lesion. ? COMPARISON: ?? CT abdomen/pelvis 11/17/2023. ? TECHNIQUE: ?? Multiple routine MRI sequences through the abdomen were obtained before ?? and after the uneventful administration of 10 mL Gadavist ?? gadolinium-based IV contrast. ? FINDINGS: ? LUNG BASES: Lung bases are clear. ? LIVER: Liver is normal in size, signal and morphology. ? There is a 0.5 and 0.7 cm foci of arterial phase hyperenhancement in ?? the right hepatic lobe (images 42 and 37 of series 100) with no ?? corresponding signal abnormality in any of the other sequences ?? suggestive of transient perfusional observations. ? GALLBLADDER AND BILIARY TREE: The gallbladder is not visualized, ?? possibly surgically removed versus decompressed. No inflammatory ?? changes in the gallbladder bed to suspect acute cholecystitis. No ?? biliary ductal dilatation. ? SPLEEN: Normal. ? PANCREAS: Normal. ? ADRENAL GLANDS: Normal. ? KIDNEYS AND URETERS: Symmetric nephrograms. No hydronephrosis. No ?? perinephric stranding. ? Corresponding to the abnormality in question, there is a 1.4 cm ?? endophytic observation in the posterior aspect of the interpolar left ?? kidney that is best visualized on the delayed postcontrast phase (image ?? 77 series 102) as a region of hypoenhancement compared to the adjacent ?? renal cortex. On an earlier postcontrast arterial phase, it ?? demonstrates similar enhancement compared to the cortex (image 75 ?? series 100). On T2 images, it demonstrates faint internal ?? hyperintensity and a very subtle hypointense rim (image 25 series 4). ?? On precontrast T1 images, the observation is not well seen. In the ?? in-and-out of phase images, there is no discrete associated signal ?? abnormality. ? GASTROINTESTINAL: Trace hiatal hernia. No evidence of bowel obstruction ?? or ascites. ? LYMPHOVASCULAR STRUCTURES: Normal caliber aorta. No pathologically ?? enlarged abdominal or retroperitoneal lymphadenopathy by short axis ?? size criteria. ? OSSEOUS STRUCTURES: No acute or suspicious osseous abnormalities. ? MR/MR kidney wo/w con ?? IMPRESSION: ?? Stable 1.4 cm lesion in the posterior aspect of the interpolar left ?? kidney with enhancement and no evidence of fat, suspicious for a solid ?? neoplasm such as renal cell carcinoma. ? Arterial hyperenhancing foci in the liver without corresponding signal ?? abnormalities in other sequences, most suggestive of perfusional ?? changes. Out of precaution, a follow-up MRI in 3-6 months is ?? recommended. ? Dictated By: ?Selena Rodriguez ? Signed By: ?<Electronically signed by Selena ??Jennifer in OV> ? 02/06/24 1344 ? DD/ 1030 ? TD/TT: ? Environmental Science Technician: ? Procedure Note Jacquelin Manjarrez - 02/06/2024 [place] [id number] Magnetic Resonance Report Signed Patient: Santana Cramer#: [id number] : 1980Acct:[id number] Age/Sex: 43 / FADM Date: 01/20/24 Loc: HO.MRI Attending Dr: Lizbeth Pearson MD Ordering Physician: Lizbeth Pearson Date of Service: 01/20/24 Procedure(s): MR kidney wo/w con Accession Number(s): [id number] cc: Lizbeth Pearson; Cierra Tejada DO EXAMINATION: MRI ABDOMEN WITH AND WITHOUT CONTRAST CLINICAL INFORMATION: Evaluation of left renal lesion. COMPARISON: CT abdomen/pelvis 11/17/2023. TECHNIQUE: Multiple routine MRI sequences through the abdomen were obtained before and after the uneventful administration of 10 mL Gadavist gadolinium-based IV contrast. FINDINGS: LUNG BASES: Lung bases are clear. LIVER: Liver is normal in size, signal and morphology. There is a 0.5 and 0.7 cm foci of arterial phase hyperenhancement in the right hepatic lobe (images 42 and 37 of series 100) with no corresponding signal abnormality in any of the other sequences suggestive of transient perfusional observations. GALLBLADDER AND BILIARY TREE: The gallbladder is not visualized, possibly surgically removed versus decompressed. No inflammatory changes in the gallbladder bed to suspect acute cholecystitis. No biliary ductal dilatation. SPLEEN: Normal. PANCREAS: Normal. ADRENAL GLANDS: Normal. KIDNEYS AND URETERS: Symmetric nephrograms. No hydronephrosis. No perinephric stranding. Corresponding to the abnormality in question, there is a 1.4 cm endophytic observation in the posterior aspect of the interpolar left kidney that is best visualized on the delayed postcontrast phase (image 77 series 102) as a region of hypoenhancement compared to the adjacent renal cortex. On an earlier postcontrast arterial phase, it demonstrates similar enhancement compared to the cortex (image 75 series 100). On T2 images, it demonstrates faint internal hyperintensity and a very subtle hypointense rim (image 25 series 4). On precontrast T1 images, the observation is not well seen. In the in-and-out of phase images, there is no discrete associated signal abnormality. GASTROINTESTINAL: Trace hiatal hernia. No evidence of bowel obstruction or ascites. LYMPHOVASCULAR STRUCTURES: Normal caliber aorta. No pathologically enlarged abdominal or retroperitoneal lymphadenopathy by short axis size criteria. OSSEOUS STRUCTURES: No acute or suspicious osseous abnormalities. MR/MR kidney wo/w con IMPRESSION: Stable 1.4 cm lesion in the posterior aspect of the interpolar left kidney with enhancement and no evidence of fat, suspicious for a solid neoplasm such as renal cell carcinoma. Arterial hyperenhancing foci in the liver without corresponding signal abnormalities in other sequences, most suggestive of perfusional changes. Out of precaution, a follow-up MRI in 3-6 months is recommended. Dictated By: Selena Rodriguez Signed By: <Electronically signed by Selena Rodriguez in OV> 02/06/24 1344 DD/ 1030 TD/TT: Environmental Science Technician: us Lizbeth Pearson MD IMG MRI PROCEDURES Final Resul t documented in this encounter Visit Diagnoses Diagnosis Left kidney mass- Primary Unspecified disorder of kidney and ureter documented in this encounter Care Teams Health Tech Relationship Specialty Start Date End Date Cierra Tejada DO [address] [place] [address] PCP - General Family Medicine 11/18/14 documented as of this encounter
--- OUTSIDE RECORDS SUMMARY | 2024-11-15 08:35 | XMS_ITS | Encounter Summary ---
Author Organization [email or web address] [facility] Address [address] [facility] [address] [facility] [address] [place] [address] Care Team Providers Care Clerical Methods Analyst Name Role Phone Cierra Tejada DO Primary Care Provider Encounter Details Date Type Department Care Team (Latest Contact Info) Description 03/30/2019 Abstract [facility] CONVERSIONS Dental, Provider, DDS Social History Tobacco Use Types Packs/Day Years Used Date Smoking Tobacco: Never Assessed Comments Unknown Sex and Gender Information Value [...] Description 11/15/2024 10:00 AM EDT Clinical Support [facility] MEDICINE [address] [place] [address] 12/20/2024 10:00 AM EDT Office Visit [facility] OPTOMETRY [address] [place] [address] Vinnie, Yanni, OD [address] [place] [address] documented as of this encounter Visit Diagnoses Not on filedocumented in this encounter Care Teams Clerical Methods Analyst Relationship Specialty Start Date End Date Cierra Tejada DO [address] [place] [address] PCP - General Family Medicine 11/18/14 documented as of this encounter
--- OUTSIDE RECORDS SUMMARY | 2024-11-15 08:35 | XMS_ITS | Encounter Summary ---
Author Organization [employer] [facility] Address [address] [facility] [place] [address] Care Team Providers Care Coal Inspector Name Role Phone Cierra Tejada DO Primary Care Provider [phone] Reason for Visit * Reason Onset Date Comments Nurse Triage 11/10/2023 ER Follow-up 11/10/2023 Encounter Details Date Type Department Care Team (Late st Contact Info) Description 11/10/2023 Telephone [facility] MEDICINE [address] [place], [place] [phone] Cierra Tejada DO [address] [place], [place] [phone] Nurse Triage; ER Follow-up Social History Tobacco Use Types Packs/Day Years [...] the past 12 months, has t he electric, gas, oil or water company threatened to [...] AM EDT documented as of this encounter Miscellaneous Notes * Telephone Encounter - An Bender RN - 11/10/2023 11:53 AM EDT Please request ER notes for visit 11/09/23 at in [facility] phone number [phone]. * Telephone Encounter - An Bender RN - 11/10/2023 11:44 AM EDT Call to Johnnie Ramos , reports having been seen at [place] [phone]. Per pt seen last night due to having abdominal pain that was epigastric and radiated to back. Pt also having vomiting. Pt given IV meds for pain, blood work, CT scan. Per pt was told having issues with esophagus and a mass on kidney and a kidney stone. Per pt advised to follow up with PCP on findings. Per pt not having pain today. No further vomiting. Pt advised that first available follow up on Friday with team provider. Pt agrees. Reviewed home care advise, ER precautions and reasons to call back. Protocol Used: Recent Medical Visit for Illness Follow-up Call (Adult) Protocol-Based Disposition: See in Office or Video Visit Today or Tomorrow Override (Final) Disposition: See in Office or Video Visit within 3 Days Override Reason: No appointments available Future Appointments Date Time Provider Department Center 11/14/2023 11:15 AM Lizbeth Pearson MD MEDICINE [facility] Video visit offer not recorded Positive Triage Question: * Patient wants to be seen * All higher-acuity triage questions were negative Care Advice Discussed: * Continue Treatment * Reasons To Call Back - You become worse * Telephone Encounter - Shira Dewitt - 11/10/2023 11:11 AM EDT Patient calling to report ED visit on : Date: 11/08 Hospital: [facility] Seen for: Abdominal Pain (Multiple diagnosis) Patient advised will forward to team nurse for follow up. Symptom: Abdominal Pain - Female - Not Outcome: Schedule an appointment to be seen within 24 hours Reason: Caller denied all higher acuity questions The caller accepted this outcome documented in this encounter Plan of Treatment Upcoming Encounters Date Type Department Care Team (Late st Contact Info) Description 11/15/2024 10:00 AM EDT Clinical Support [facility] MEDICINE [address] [place], [place] [phone] 12/20/2024 10:00 AM EDT Office Visit [facility] OPTOMETRY [address] [place] [address] Yanni Birmingham, OD [address] [place] [address] documented as of this encounter Visit Diagnoses Not on filedocumented in this encounter Care Teams Coal Inspector Relationship Specialty Start Date End Date Cierra Tejada DO [address] [place], [place] [phone] PCP - General Family Medicine 11/18/14 documented as of this encounter
--- OUTSIDE RECORDS SUMMARY | 2024-11-15 08:35 | XMS_ITS | Clinical Summary ---
Author Organization [facility] Address [address] [place] [address] Care Team Providers Care Business Process Associate Name Role Phone Cierra Tejada Primary Care Provider [phone] Allergies Active Allergy Reactions Criticality Noted Date Comments Aspirin 11/18/2014 Other reaction(s): Hives Ibuprofen 03/30/2018 Penicillins 11/18/2014 Other reaction(s): Itching Shellfish Allergy 01/17/2023 Medications * This document contains information received from the source organization and may not represent a complete record from that organization. Blood Pressure kit 1 each 1 (one) time per week. 1 kit 4 Active Tirzepatide-Raul ght Management (Zepbound) 2.5 MG/0.5ML solution auto-injector Inject 0.5 mL (2.5 mg) under the skin 1 (one) time per week. 2 mL 3 5 Active losartan (Cozaar) 25 MG tablet Take 1 tablet (25 mg) by mouth Once per day. 30 tablet 11 5 10/16/19 26 Active albuterol 108 (90 Base) MCG/ACT inhaler Inhale 2 puffs every 4 (four) hours if needed for wheezing or shortness of breath. 18 g 1 5 10/16/19 26 Active baclofen (Lioresal) 10 MG tablet Take 1 tablet (10 mg) by mouth if needed in the morning, at noon, and at bedtime for muscle spasms. 60 tablet 1 5 Active Diclofenac Sodium 1 % gel Apply 2 g topically if needed in the morning, at noon, in the evening, and at bedtime (pain). 150 g 3 5 Active docusate sodium (Colace) 100 MG capsule Take 1 capsule (100 mg) by mouth 2 times daily. 180 capsule 3 5 10/16/19 26 Active gabapentin (Neurontin) 100 MG capsule Take 1 capsule (100 mg) by mouth 3 times daily. 90 capsule 3 5 10/16/19 26 Active lidocaine (Lidoderm) 5 % patch Apply 1 patch topically if needed each day for mild pain. Remove & discard patch within 12 hours or as directed by MD. 30 patch 3 5 Active omeprazole OTC (PriLOSEC OTC) 20 MG EC tablet Take 1 tablet (20 mg) by mouth before evening meal. Do not crush, chew, or split. 90 tablet 3 5 10/16/19 26 Active sertraline (Zoloft) 50 MG tablet Take 1 tablet (50 mg) by mouth Once per day. 30 tablet 2 5 Active traZODone (Desyrel) 50 MG tablet Take 1 tablet (50 mg) by mouth if needed at bedtime for sleep. 30 tablet 2 5 10/16/19 26 Active Active Problems Problem Noted Date Diagnosed Date Prediabetes 04/08/2024 Status post cholecystectomy 02/11/2024 Chronic gastroesophageal reflux disease 02/11/20 24 Left kidney mass 11/16/2023 Post traumatic stress disorder (PTSD) 01/17/2023 History of COVID-19 01/17/2023 BMI 36.0-36.9,adult 08/18/2015 Tobacco dependence in remission 05/17/2015 Mild intermittent asthma 05/17/2015 Major depression, recurrent, chronic 05/17/2015 Assessment & Plan (01/17/2023 11:20 AM EDT): Assessment: ?? Patient with a history of depression, (depressed mood, increased tearfulness, difficulty sleeping, and difficulty concentrating) and a history of trauma (exposure to traumatic events that were life threatening in childhood and adulthood) in the context of biopsychosocial stressor of having a new job. Patient will benefit from OP therapy deep breathing and grounding. ?? At this time Ziyadyared Sy Ramos meets criteria for Visit Diagnoses: Problem List Items Addressed This Visit ? Other ?? Major depressive disorder, single episode with melancholic features PTSD, unspecified ?? Patient ready to address current needs Yes ?? Strengths include resilience ?? PLAN: 1. Follow up with [facility]: Not recommended for follow-up 2. Patient goal is engage in OP therapy and access coping mechanisms 3. Behavioral Recommendations a. Deep Breathing b. PTSD Meat Smoker Nikki c. Grounding Allergic rhinitis 05/17/2015 Resolved Problems Problem Noted Date Diagnosed Date Resolved Date Epigastric pain 11/16/2023 02/11/2024 Assessment & Plan (11/16/2023 9:39 PM EDT): Pt here for ER followup of epigastric pain and emesis on 11/09/23 Full records not available, but labs and CT scan were obtained at [facility] No gallbladder pathology seen on CT Vital signs stable today and abdomen is not surgical Recommend soft, bland diet, take Zofran prior to eating Take Famotadine as needed Will re-check lipase and CMP today US of kidneys will help determine the nature of the mass seen on her L kidney Recommend cessation of unknown [facility] [place] due to time course relation with nausea/vomiting/epigastric pain Encounters Date Type Department Care Team Description 11/07/2024 Orders Only [facility] MEDICINE [address] [place] [address] Cierra Tejada DO 10/25/2024 Telephone [place] [facility] Information Management [address] [place] [address] Cierra Tejada DO 10/22/2024 Population Health Risk Score Community [facility] (C[facility]) Department [address] [place] [phone] Provider, Population Health Generic 10/15/2024 10:00 AM EST Office Visit [facility] MEDICINE [address] [place] [address] Cierra Tejada DO Essential hypertension (Primary Dx); Prediabetes; Major depression, recurrent, chronic (CMS/HCC); Mild intermittent asthma without complication; Chronic gastroesophageal reflux disease; Left kidney mass; Abnormal MRI, liver; Morning headache; Chronic bilateral low back pain with right-sided sciatica; Healthcare maintenance; BMI 36.0-36.9,adult 10/15/2024 Travel 09/02/2024 Travel from Last 3 Months Immunizations Name Administration Dates Next Due Influenza injectable quadriv alent IIV4 with preservative 06/24/2016,05/17/2015 Pneumococcal Polysaccharide PPSV23 12/07/2014 Tdap 12/07/2014 Family History Medical History Relation Name Comments Depression Father Diabetes Father Hypertension Father Diabetes Maternal Grandfather Prostate cancer Maternal Grandfather Heart disease Maternal Grandmother Heart disease Mother Hypertension Mother Heart disease Sister Relation Name Status Comments Father Maternal Grandfather Maternal Grandmother Mother Sister Social History Tobacco Use Types Packs/Day Years Used Date Smoking Tobacco: Former Cigarettes Passive Smoke Exposure: Past Smokeless Tobacco: Never Tobacco Cessation:Counseling Given: Not Answered Alcohol Use Standard Drinks/Week Comments Never 0 (1 standard drink = 0.6 oz pur e alcohol) Depression Answer Date Recorded Patient Health Questionnaire-9 Score 7 02/11/2024 Patient Health Questionnaire-9 Score 7 02/11/2024 Last PHQ-9: Questionnaire Data Not on file 0 02/11/2024 Housing Stability Answer Date Recorded What is your housing situation today? I have heriberto frey 02/02/[address] you li ve. Do you have problems with any of the following? None of the above 02/02/2024 Food Insecurity Answer Date Recorded Within the past 12 months, y ou worried that your food would run out before you got money to buy more: Never True 02/02/2024 Within the past 12 months,th e food you bought just didn't last and you didn't have enough money to get more: Never True Transportation Answer Date Recorded In the past 12 months, has l ack of transportation kept you from medical appts, meetings, work or from getting things needed for daily living? No 02/02/2024 Utilities Answer Date Recorded In the past 12 months, has t he electric, gas, oil or water company threatened to shut off services in your home? No 02/02/2024 Depression Answer Date Recorded Patient Health Questionnaire-2 Score 1 02/11/2024 Internet Access Answer Date Recorded Internet Access Q1 No 04/09/2024 Internet Access Q2 Not on file 04/09/2024 Comments Unknown Sex and Gender Information Value Date Recorded Sex Assigned at Female 06/10/2022 10:21 AM EDT Legal Sex Female 10:21 AM EDT Gender Identity Female 06/10/2022 10:21 AM EDT Sexual Orientation Straight 06/10/2022 10 :21 AM EDT Last Filed Vital Signs Vital Sign Reading Time Taken Comments Blood Pressure 146/95 10/15/2024 9:35 AM EST Pulse 84 10/15/2024 9:35 AM EST Temperature 36.2 ??C (97.1 ??F) 10/15/2024 9:35 AM ES T Respiratory Rate 20 10/15/2024 9:35 AM EST Oxygen Saturation 98% 04/08/2024 10:09 AM EDT Inhaled Oxygen Concentration - - Weight 90.3 kg (199 lb 2 oz) 10/15/2024 9:35 AM EST Height 158.5 cm (5' 2.4 ) 10/15/2024 9:35 AM EST Body Mass Index 35.95 10/15/2024 9:35 AM EST Plan of Treatment Upcoming Encounters Date Type Department Care Team (Late st Contact Info) Description 11/15/2024 10:00 AM EDT Clinical Support [facility] MEDICINE [address] [place] [address] 12/20/2024 10:00 AM EDT Office Visit [facility] OPTOMETRY [address] [place] [address] Vinnie, Yanni, OD [address] [place] [address] Health Maintenance Due Date Last Done Comments CT Colonography 1979 Colonoscopy 1979 Colorectal Cancer Screening 1979 FIT DNA/Cologuard 1979 FIT 1979 FOBT 1979 Sigmoidoscopy 1979 Family Planning (PISQ) 1994 Hepatitis B Vaccines (1 of 3 - 19+ 3-dose series) 1998 Pneumococcal Vaccine: Pediatrics (0 to 5 Years) and At-Risk Patients (6 to 49) Years) (2 of 2 - PCV) 12/08/2015 12/07/2014 Dental X-Ray: Full Mouth 07/15/2018 07/14/2015 Dental Oral Exam 10/01/2019 03/30/2019, 12/04/2017, 07/14/2015 Dental Prophylaxis 10/01/2019 03/30/2019, 03/10/2018 Dental X-Ray: Bitewings 03/31/2020 03/30/20 19, 12/04/2017, 07/14/2015 Mammogram 04/21/2020 04/21/2018 COVID-19 Vaccine (1 - 2023-2 5 season) 2024 Influenza Vaccine (#1) 2024 6, 05/17/2015 DTaP/Tdap/Td Vaccines (2 - T d or Tdap) 12/07/2024 12/07/2014 SDOH Screening 02/01/2025 02/02/2024 Depression Screening 02/10/2025 02/11/2024, 02/11/2024 Diabetes: Hemoglobin A1C 02/10/2025 024, 01/17/2023 Alcohol/Substance Use Screening 10/15/2025 10/15/2024 Tobacco Screening 10/15/2025 10/15/2024 Pap Smear 03/05/2026 03/05/2023 Cervical Cancer Screening 03/05/2028 HPV/Cotest 03/05/2028 03/05/2023, 04/10/2018 Lipid Panel 02/10/2029 02/11/2024, 01/17/2023 Zoster Vaccines (1 of 2) 2029 RSV Patients and Patients Aged 60 years or older (1 - 1-dose 75+ series) 2054 HIV Screening Completed 02/11/2024, 01/17/2023 Hepatitis C Screening Completed 02/11/2024 , 01/17/2023 HIB Vaccines Aged Out No longer eligi ble based on patient's age to complete this topic HPV Vaccines Aged Out No longer eligi ble based on patient's age to complete this topic Hepatitis A Vaccines Aged Out No long er eligible based on patient's age to complete this topic IPV Vaccines Aged Out No longer eligi ble based on patient's age to complete this topic Meningococcal Vaccine Aged Out No harry catherine eligible based on patient's age to complete this topic RSV under 20 months Aged Out No longe r eligible based on patient's age to complete this topic Rotavirus Vaccines Aged Out No longer eligible based on patient's age to complete this topic Procedures Procedure Name Priority Date/Time Associated Diagnosis Comments MR ABDOMEN W AND WO CONTRAST Routine 11/08/2024 8:33 PM EDT MR LUMBAR SPINE WO CONTRAST Routine 11/07/2024 1:44 PM EDT Essential hypertension Prediabetes Major depression, recurrent, chronic (CMS/HCC) Mild intermittent asthma without complication Chronic gastroesophageal reflux disease Left kidney mass Abnormal MRI, liver Morning headache Chronic bilateral low back pain with right-sided sciatica Healthcare maintenance BMI 36.0-36.9,adult HEPATITIS C AB W/REFL TO HCV RNA, QN, PCR Routine 02/11/2024 10:25 AM EDT Routine history and physical examination of adult HIV 1/2 ANTIGEN/ANTIBODY, FOURTH GENERATION W/RFL Routine 02/11/2024 10:25 AM EDT Routine history and physical examination of adult HEMOGLOBIN A1C Routine 02/11/2024 10:25 AM EDT Routine history and physical examination of adult LIPID PANEL, STANDARD Routine 02/11/2024 10:25 AM EDT Routine history and physical examination of adult HPV MRNA E6/E7 REFLEX TO HPV 16, 18/45 Routine 03/05/2023 2:08 PM EDT PAP SMEAR Routine 03/05/2023 2:08 PM EDT PROPHYLAXIS - ADULT Routine 03/30/2019 1 2:00 AM EDT BITEWINGS - 4 RADIOGRAPHIC IMAGES Routine 03/30/2019 12:00 AM EDT PERIODIC ORAL EVALUATION - ESTABLISHED PATIENT Routine 03/30/2019 12:00 AM EDT BI MAMMOGRAM DIAGNOSTIC BILATERAL Routine 04/21/2018 3:11 PM EDT INTRAORAL - COMPLETE SERIES OF RADIOGRAPHIC IMAGES Routine 07/14/2015 12:00 AM EST from Last 3 Months or Most Recently Relevant to Health Maintenance Results * MR Abdomen w/ and w/o Contrast (11/08/2024 8:33 PM EDT) Anatomical Region Laterality Modality Abdomen Magnetic Resonan ce 11/08/2024 8:33 PM EDT Narrative 11/08/2024 8:35 PM EDT ? [facility] ?[address] ?[place] [address] ? Magnetic Resonance Report ? Signed ? Patient: Colon Richard,Mabelis ?MR#: [id number] ?? [id number] ? : 1980 ?Acct:[id number] ? Age/Sex: 44 / F ?ADM Date: 11/07/24 ? Loc: HO.MRI ? Attending Dr: Cierra Tejada DO ? Ordering Physician: Cierra Tejada DO ?? Date of Service: 11/07/24 ?? Procedure(s): MR abdomen wo/w con ?? Accession Number(s): [id number] ? cc: Cierra Tejada DO ? CLINICAL HISTORY: FOCI IN LIVER ? MR abdomen with and without gadolinium ? Comparison: MR/WY/SR - MR KIDNEY WO/W CON - 01/20/24 10:18 EDT ? Findings: ? Lung bases are clear. Heart size is normal. ? Liver, biliary tree, and pancreas are within normal limits. Gallbladder is ?? not seen. ? Spleen and adrenals are within normal limits. 13 mm hypoenhancing focus ?? within the left interpolar kidney posteriorly is unchanged. Kidneys are ?? otherwise within normal limits. ? Visualized bowel loops and vasculature are within normal limits. No ?? adenopathy. Small hiatal hernia. ? Visualized osseous structures are within normal limits. ? IMPRESSION: ?? 1. No significant change in left interpolar renal focus. Continued follow ?? up MRI with and without intravenous contrast in 1 year recommended. ?? 2. Resolution of previously seen hepatic foci of enhancement. ?? 3. Small hiatal hernia. ? This document has been electronically signed by: Karsten Pritchett MD on ?? 11/08/2024 20:33:34 ? Dictated By: ?Karsten Pritchett MD ? Signed By: ?<Electronically signed by Karsten Pritchett MD in OV> ? 11/08/242033 ? DD/ 32 ? TD/TT: 11/08/242032 ? Interventional Nurse: ? Procedure Note Josseline, Image - 11/08/[address] [address] Magnetic Resonance Report Signed Patient: aSntana Cramer#: [id number] : 1980Acct:[id number] Age/Sex: 44 / FADM Date: 11/07/24 Loc: HO.MRI Attending Dr: Cierra Tejada DO Ordering Physician: Cierra Tejada DO Date of Service: 11/07/24 Procedure(s): MR abdomen wo/w con Accession Number(s): [id number] cc: Cierra Tejada DO CLINICAL HISTORY: FOCI IN LIVER MR abdomen with and without gadolinium Comparison: MR/WY/SR - MR KIDNEY WO/W CON - 01/20/24 10:18 EDT Findings: Lung bases are clear. Heart size is normal. Liver, biliary tree, and pancreas are within normal limits. Gallbladder is not seen. Spleen and adrenals are within normal limits. 13 mm hypoenhancing focus within the left interpolar kidney posteriorly is unchanged. Kidneys are otherwise within normal limits. Visualized bowel loops and vasculature are within normal limits. No adenopathy. Small hiatal hernia. Visualized osseous structures are within normal limits. IMPRESSION: 1. No significant change in left interpolar renal focus. Continued follow up MRI with and without intravenous contrast in 1 year recommended. 2. Resolution of previously seen hepatic foci of enhancement. 3. Small hiatal hernia. This document has been electronically signed by: Karsten Pritchett MD on 11/08/2024 20:33:34 Dictated By: Karsten Pritchett MD Signed By: <Electronically signed by Karsten Pritchett MD in OV> 11/08/242033 DD/ 32 TD/TT: 11/08/242032 Interventional Nurse: us Cierra Tejada DO IMG MRI PROCEDURES Final Res ult * MR Lumbar Spine w/o Contrast (11/07/2024 1:44 PM EDT) Anatomical Region Laterality Modality Spine, L-spine Magnetic Resonan ce 11/07/2024 1:44 PM EDT Narrative 11/08/2024 7:54 AM EDT ? [facility] ?[address] ?[place] [address] ? Magnetic Resonance Report ? Signed ? Patient: Colon Richard,Mabelis ?MR#: [id number] ?? [id number] ? : 1980 ?Acct:[id number] ? Age/Sex: 44 / F ?ADM Date: 11/07/24 ? Loc: HO.MRI ? Attending Dr: Cierra Tejada DO ? Ordering Physician: Cierra Tejada DO ?? Date of Service: 11/07/24 ?? Procedure(s): MR lumbar spine wo con ?? Accession Number(s): [id number] ? cc: Cierra Tjeada DO ? EXAMINATION: ?? MR LUMBAR SPINE WITHOUT CONTRAST ? CLINICAL INFORMATION: ?? Worsening low back pain radiating to the right lower extremity. ? COMPARISON: ?? None available. ? TECHNIQUE: ?? MRI of the lumbar spine was obtained using routine sequences without ?? contrast. ? FINDINGS: ?? Last rib-bearing vertebra labeled T12. ?? There is an intrinsic hyperintense T1 bone lesion at T12 likely ?? intraosseous hemangioma. ?? There is Modic type II endplate changes at L5-S1 with decreased ?? intervertebral disc height subchondral cyst formation and endplate ?? irregularity and punctate STIR signal. ?? The alignment is normal. ?? The conus medullaris ends at pedicle of L1 with normal signal. ? T12-L1: ?? No disc herniation. No neuroforamina stenosis. ? L1-2: ?? Broad-based disc bulging. No disc herniation. No neuroforamina stenosis. ? L2-3: ?? Broad-based disc bulging. Facet joint hypertrophy. No compression upon ?? neural elements. ? L3-4: ?? Broad-based disc bulging. Facet joint and ligamentum flavum ?? hypertrophy. No compression upon neural elements. ? L4-5: ?? Broad-based disc bulging. Facet joint and ligamentum flavum ?? hypertrophy. No compression upon neural elements. ? L5-S1: ?? Central disc herniation at L5-S1 abutting the S1 nerve roots on the ?? lateral recesses. ?? Facet joint hypertrophy. Bilateral neuroforamina narrowing likely ?? encroaching the L5 exiting nerve roots. ? No prevertebral compartment hematoma, mass or fluid collection. ? MR/MR lumbar spine wo con ?? IMPRESSION: ?? Central disc herniation at L5-S1 abutting the S1 nerve roots. ?? Multilevel cervical spondylosis more conspicuous at L5-S1 and to a ?? lesser extent L4-5 likely encroaching the L5 exiting nerve roots. ? Electronically signed by: ??Juan Antonio Riggins MD ??11/08/2024 07:51 AM ?? EDT RP ? Dictated By: ?Juan Antonio Finney MD ? Signed By: ?<Electronically signed by Juan Antonio Rios MD in OV> ? 11/08/24 0751 ? DD/ 1344 ? TD/TT: 11/07/24 1425 ? Interventional Nurse: ? Procedure Note Donshaunnater, Image - 11/08/2024 [place] [address] Magnetic Resonance Report Signed Patient: Santana Cramer#: [id number] : 1980Acct:[id number] Age/Sex: 44 / FADM Date: 11/07/24 Loc: HO.MRI Attending Dr: Cierra Tejada DO Ordering Physician: Cierra Tejada DO Date of Service: 11/07/24 Procedure(s): MR lumbar spine wo con Accession Number(s): [id number] cc: Cierra Tejada DO EXAMINATION: MR LUMBAR SPINE WITHOUT CONTRAST CLINICAL INFORMATION: Worsening low back pain radiating to the right lower extremity. COMPARISON: None available. TECHNIQUE: MRI of the lumbar spine was obtained using routine sequences without contrast. FINDINGS: Last rib-bearing vertebra labeled T12. There is an intrinsic hyperintense T1 bone lesion at T12 likely intraosseous hemangioma. There is Modic type II endplate changes at L5-S1 with decreased intervertebral disc height subchondral cyst formation and endplate irregularity and punctate STIR signal. The alignment is normal. The conus medullaris ends at pedicle of L1 with normal signal. T12-L1: No disc herniation. No neuroforamina stenosis. L1-2: Broad-based disc bulging. No disc herniation. No neuroforamina stenosis. L2-3: Broad-based disc bulging. Facet joint hypertrophy. No compression upon neural elements. L3-4: Broad-based disc bulging. Facet joint and ligamentum flavum hypertrophy. No compression upon neural elements. L4-5: Broad-based disc bulging. Facet joint and ligamentum flavum hypertrophy. No compression upon neural elements. L5-S1: Central disc herniation at L5-S1 abutting the S1 nerve roots on the lateral recesses. Facet joint hypertrophy. Bilateral neuroforamina narrowing likely encroaching the L5 exiting nerve roots. No prevertebral compartment hematoma, mass or fluid collection. MR/MR lumbar spine wo con IMPRESSION: Central disc herniation at L5-S1 abutting the S1 nerve roots. Multilevel cervical spondylosis more conspicuous at L5-S1 and to a lesser extent L4-5 likely encroaching the L5 exiting nerve roots. Electronically signed by: Juan Antonio Riggins MD 11/08/2024 07:51 AM EDT RP Dictated By: Juan Antonio Finney MD Signed By: <Electronically signed by Juan Antonio Rios MDin OV> 11/08/24 0751 DD/ 1344 TD/TT: 11/07/24 1425 Interventional Nurse: us Cierra Tejada DO IMG MRI PROCEDURES Final Res ult * Hepatitis C Antibody with Reflex to HCV, RNA, Quantitative, Real-Time PCR (02/11/2024 10:25 AM EDT) Hepatitis C Antibody Nonreactive Nonreactive [facility] Comment:Antibodies to HCV no t detected; does not exclude early acuteHCV infection. Blood Venous blood specimen / Unknown 02/11/2024 10:25 AM EDT 02/11/2024 1:14 PM EDT Cierra Tejada DO LAB BLOOD ORDERABLES Final R esult [facility] [address] [place] [phone] * HIV-1/2 Antigen and Antibodies, Fourth Generation, with Reflexes (02/11/2024 10:25 AM EDT) HIV AB/AG Nonreactive Nonreactive [facility] Comment:HIV-1 p24 Ag and/or HIV-1/HIV-2 Ab not detected.A test result that is nonreactive does not exclude thepossibility of exposure to or infection with HIV-1 and/orHIV-2. Nonreactive results in this assay for individualswith prior exposure to HIV-1 and/or HIV-2 may be due toantigen and antibody levels that are below the limit ofdetection of this assay.The Global Active HIV Ag/Ab Combo assay result andsupplemental assay results should be interpreted inconjunction with the patient's clinical presentation,history and other laboratory results. If the results areinconsistent with clinical evidence, additional testing issuggested to confirm the result. Blood Venous blood specimen / Unknown 02/11/2024 10:25 AM EDT 02/11/2024 1:14 PM EDT us Cierra Tejada DO LAB BLOOD ORDERABLES Final R esult [facility] [address] [place] [phone] * Hemoglobin A1c (02/11/2024 10:25 AM EDT) Hemoglobin A1c 5.7 <6.0 % [facility] Comment:Hemoglobin A1C Refer ence Range Adults: 4.8 - 6.0 % Non diabetic: < 6.0 % Goal: < 7.0 %Additional Action Suggested: > 8.0 %Note: Hemoglobin A1c results are invalid for patients with abnormal amounts of HbF. Blood transfusions may impact the HbA1c concentration in the patient sample. Estimated Average Glucose 117 mg/dL [facility] Comment:eAG = Estimated ave rage glucose which is %A1C expressed asaverage glucose, using the formula of the N1Z-[id number] Glucose study (ADAG), Diabetes Care, Vol.31,#8,Mar. 2007 Blood Venous blood specimen / Unknown 02/11/2024 10:25 AM EDT 02/11/2024 1:11 PM EDT Cierra Tejada DO LAB BLOOD ORDERABLES Final R esult Performing Organization Address [facility]/ZIP Co de Phone Number [facility] [address] [place] [phone] * Lipid Panel, Standard (02/11/2024 10:25 AM EDT) Triglycerides 93 <150 mg/dL [facility] Comment:Desirable Triglyceri de: less than 150 mg/dLBorderline High Triglyceride 150-199 mg/dLHigh Triglyceride: 200-499 mg/dLVery High Triglyceride: greater than or equal to 5OO mg/dL Cholesterol 153 <200 mg/dL [facility] Comment:Desirable Cholestero l: less than 200 mg/dLBorderline High Cholesterol: 200-239 mg/dLHigh Cholesterol: greater than 239 mg/dL LDL Cholesterol Calculated 87 <100 mg/dL [facility] Comment:Desirable LDL: less than 100 mg/dLNear Optimal/Above Optimal LDL: 110- 129 mg/dLBorderline High LDL: 130-159 mg/dLHigh LDL: 160-189 mg/dLVery High LDL: greater than or equal to 190 mg/dL HDL Cholesterol 48 >40 mg/dL [facility] Comment:Desirable HDL: great er than 40 mg/dL Note: This HDL assay may give artificially low results in patients with liver disease. Blood Venous blood specimen / Unknown 02/11/2024 10:25 AM EDT 02/11/2024 1:14 PM EDT Cierra Tejada DO LAB BLOOD ORDERABLES Final R esult Performing Organization Address City/[facility]/ZIP Co de Phone Number [facility] [address] [place] [phone] * HPV mRNA E6/E7 w/Reflex to HPV Genotypes 16, 18/45 (03/05/2023 2:08 PM EDT) HPV nRNA E6/E7 Not Detected Not Detected [facility] Comment:Methodology: Transcr iption-Mediated AmplificationThis assay detects E6/E7 viral messenger RNA (mRNA) from 14high-risk HPV types (16,18,31,33,35,39,45,51,52,56,58,59,66,68).Cervical sources are required for HPV testing.If a vaginal source from a patient who has had atotal hysterectomy with removal of cervix wassubmitted, please contact the testing laboratoryfor alternative testing options.For additional information, please refer tohttp://[email or web address]/faq/CES433z8(This link if provided for information/educational purposes only.)THIS TEST WAS PERFORMED AT:[facility] [place] [id number] HERRERA MD HPV mRNA E6/E7 [facility] HPV 16 [facility] HPV 18/45 RNA [facility] 03/05/2023 2:08 PM EDT 03/06/2023 8:30 AM EDT Cierra Tejada DO LAB CYTOLOGY ORDERABLES Nataly oreilly Result [facility] [address] [place] [phone] * Pap Smear (03/05/2023 2:08 PM EDT) 03/05/2023 2:08 PM EDT 03/06/2023 8:30 AM EDT Narrative [facility] - 03/18/2023 1:39 PM EDT ----- ------- Name: Johnnie Cramer ?Age/Sex: 42/F ? : 1980 Unit#: [id number] ?? Attend Dr: Cierra Tejada DO ?Re03/05/23 ?Status: DEP REF ? Location: [facility] ? Disch: ? ----- ------- SPEC : [id number] ? RECD: 03/06/23 ? STATUS: ??SOUT ? REQ NUM: [id number] ? YOSEF: 03/05/23-1408 ? SUBM DR: Cierra Tejada DO ? ENTERED: ??03/06/23-1301 ?SP TYPE: Pap Smr ?OTHR : ? ORDERED: ??Pap Smear ? Interpretation ?? Satisfactory for evaluation. ?? Mild inflammation. ?? Coccobacilli consistent with shift in vaginal shayne. ?? Negative for intraepithelial lesion or malignancy. ?HPV mRNA E6/E7: ?NOT DETECTED ? This assay detects E6/E7 viral messenger RNA (mRNA) from 14 high-risk HPV types (16, 18, ?? 31, 33, 35, 39, 45, 51, 52, 56, 58, 59, 66, 68) ?? HPV testing performed by [facility], [place], [place]. ??See reference laboratory ?? pion of the EMR for entire report. ?Clinical Information LMP: Unknown date Previous PAP test: 04/10/18, WNL ? Material Received ?? ThinPrep-Vaginal/Cervical ----- ------- Signed (signature on file) ANDREA Freeman (ASCP) 03/18/23 1269 ? ----- ------- ? END OF REPORT ? us Cierra Tejada DO LAB CYTOLOGY ORDERABLES Nataly l Result [facility] [address] [place] [phone] * 3D BILATERAL DIAGN MAMMO 1 (04/21/2018 3:11 PM EDT) Anatomical Region Laterality Modality Breast Bilateral Mammography 04/21/2018 3:11 PM EDT Narrative 04/21/2018 3:13 PM EDT Refer to the Notes tab for result details [facility] Procedure: 3D BILATERAL DIAGN MAMMO 1 Procedure Note Provider, MD Hamida - 11/02/2022 Refer to the Notes tab for result details [facility] Procedure: 3D BILATERAL DIAGN MAMMO 1 us Cierra Tejada DO IMG BI PROCEDURES Final Resu lt from Last 3 Months or Most Recently Relevant to Health Maintenance Insurance [facility] C3 DENTAL-[facility] MEDICAID STAND ADULT Care Teams Business Process Associate Relationship Specialty Start Date End Date Cierra Tejada DO [address] [place] [phone] PCP - General Family Medicine 11/18/14
--- OUTSIDE RECORDS SUMMARY | 2024-11-15 08:35 | XMS_ITS | Encounter Summary ---
Author Organization [employer] Address [address] [facility] [address] [place] [address] Care Team Providers Care Investigations Chief Name Role Phone Cierra Tejada Primary Care Provider [phone] Encounter Details Date Type Department Care Team (Late st Contact Info) Description 01/28/2023 Telephone [facility] MEDICINE [address] [place], [place] [phone] Jazz Amaro LPN Social History Tobacco Use Types Packs/Day Years Used Date Smoking Tobacco: Never Smokeless Tobacco: Never Alcohol Use Standard Drinks/Week Comments Never 0 (1 standard drink = 0.6 oz pur e alcohol) Depression Answer Date Recorded Patient Health Questionnaire-2 Score 0 01/17/2023 Comments Unknown Sex and Gender Information Value Date Recorded Sex Assigned at Female 06/10/2022 10:21 AM EDT Legal Sex Female 10:21 AM EDT Gender Identity Female 06/10/2022 10:21 AM EDT Sexual Orientation Straight 06/10/2022 10 :21 AM EDT COVID-19 Exposure Response Date Recorded In the last 10 days, have yo u been in contact with someone who was confirmed or suspected to have Coronavirus/COVID-19? No / Unsure 01/17/2023 9:18 AM EDT documented as of this encounter Plan of Treatment Upcoming Encounters Date Type Department Care Team (Late st Contact Info) Description 11/15/2024 10:00 AM EDT Clinical Support [facility] [address] [place], [place] [phone] 12/20/2024 10:00 AM EDT Office Visit [facility] OPTOMETRY [address] [place], [place] [phone] Yanni Birmingham, OD [address] [place], [place] [phone] documented as of this encounter Visit Diagnoses Not on filedocumented in this encounter Care Teams Investigations Chief Relationship Specialty Start Date End Date Cierra Tejada DO [address] [place] [phone] PCP - General Family Medicine 11/18/14 documented as of this encounter
[2024-11-15 11:24] LABS: Hematocrit 37.5 % (37.0-47.0); Hemoglobin 11.9 g/dl (12.0-16.0); Mean Corpuscular HGB Conc 31.7 g/dl (31.0-35.0); Mean Corpuscular Hemoglobin 27.8 pg (27.0-33.0); Mean Corpuscular Volume 87.6 fL (80.0-98.0); Mean Platelet Volume 11.6 fL (9.4-12.3); Platelet Count 214 X10*3/uL (160-400); Red Blood Count 4.28 X10*6/uL (4.20-5.50); White Blood Count 7.9 X10*3/uL (4.8-10.8)
[2024-11-15 11:36] LABS: Creatinine Urine 104.23 mg/dL; Estimated Average Glucose 117 mg/dL; Hemoglobin A1C 126.0386 umol/L; Hemoglobin A1c % 5.7 % (<6.0); Microalbum/Creatinine Ratio Ur 5.7 ug/mg cr (<30); Total Hemoglobin (HGBA1C) 3235.4395 umol/L
[2024-11-15 13:19] LABS: CT PCR NOT DETECTED (Not Detect.); NG PCR NOT DETECTED (Not Detect.)
[2024-11-15 13:28] LABS: Free T4 (Free Thyroxine) 0.91 ng/dL (0.71-1.85); Thyroid Stimulating Hormone 1.75 uIU/mL (0.32-4.0); Vitamin D 25-OH Total 23.2 ng/mL (>30)
[2024-11-15 13:32] LABS: Anion Gap 13 (12-20)
[2024-11-15 13:38] LABS: Alanine Aminotransferase 16 U/L (0-31); Albumin Level 4.3 g/dL (3.5-5.0); Alkaline Phosphatase 107 U/L (39-117); Aspartate Amino Transferase 26 U/L (5-31); Bilirubin Direct < 0.2 mg/dL (0.0-0.5); Bilirubin Total 0.2 mg/dL (0.0-1.0); Blood Urea Nitrogen 11 mg/dL (9-16); Calcium 9.3 mg/dL (8.4-10.2); Carbon Dioxide 22 mmol/L (22-29); Chloride 108 mmol/L (96-108); Cholesterol 132 mg/dL (<200); Estimated Glomerular Filt Rate > 60; Glucose Random 82 mg/dL (60-115); HDL Cholesterol 38 mg/dL (>40); LDL Cholesterol Calculated 69 mg/dL (<100); Potassium 3.8 mmol/L (3.3-5.1); Sodium 139 mmol/L (135-145); Total Protein 7.9 g/dL (6.5-8.0); Triglycerides 126 mg/dL (<150)
[2024-11-16 04:56] LABS: HBS Num1 3.61 mIU/mL (0-7.99); HBc Num1 8.19 S/CO (0.00-0.79); HBsAGNum1 0.29 S/CO (0.00-0.99); HIV AB/AG Nonreactive (Nonreactive); HIV Num 1 0.06 S/CO (0.00-0.99); Hepatitis B Surface Antigen Negative (Negative); ~HepC Num1 0.11 S/CO (0.00-0.79); ~Hepatitis B Surface Antibody NONREACTIVE (Nonreactive); ~Hepatitis C Antibody Nonreactive (Nonreactive)
[2024-11-16 05:52] LABS: HBc Num2 8.24 S/CO; HBc Num3 8.13 S/CO; Hepatitis B Core Antibody Reactive (Nonreactive)
[2024-11-16 11:19] LABS: RPR Rapid Plasma Reagin NON-REACTIVE (NON-REACTIVE)
[2024-11-17 04:38] LABS: Hepatitis A Antibody IgG Nonreactive (Nonreactive)
[2024-11-17 10:34] LABS: Hepatitis B Core Antibody IgM NON-REACTIVE (NON-REACTIVE)
== END 2024-11-15 08:15 | disposition home or self-care (01) ==
LOC: HO.HHCL 08:14
PROVIDERS: Visit Provider Family Medicine
DX: Z00.00 Encounter for general adult medical examination without abnormal findings (principal); I10 Essential (primary) hypertension; R73.03 Prediabetes; F33.9 Major depressive disorder, recurrent, unspecified; J45.20 Mild intermittent asthma, uncomplicated; K21.9 Gastro-esophageal reflux disease without esophagitis; N28.89 Other specified disorders of kidney and ureter; R93.2 Abnormal findings on diagnostic imaging of liver and biliary tract; R51.9 Headache, unspecified; M54.41 Lumbago with sciatica, right side; G89.29 Other chronic pain; Z68.36 Body mass index [BMI] 36.0-36.9, adult
CPT/HCPCS: 80048; 80061; 80076; 82043; 82306; 82570; 83036; 84439; 84443; 85027; 86592; 86704; 86705; 86706; 86708; 86803; 87340; 87389; 87491; 87591